=== PATIENT | female | born 1995 ===

== ENCOUNTER 2021-04-15 22:48 | Inpatient (IN) | payer BC ==
[2021-04-16] MEDS ORDERED: Water For Irrigation,Sterile 1,000 ML Container IRR PRN (00:20)
[2021-04-16] MEDS ORDERED: Nalbuphine 10 MG/1 ML Vial IVPUSH PRN (00:20)
[2021-04-16] MEDS ORDERED: Misoprostol 25 MCG (1/4 of 100 MCG) Tab VAG PRN ×2 (00:20)
[2021-04-16] MEDS ORDERED: Methylergonovine 0.2 MG/1 ML Amp IM PRN (00:20)
[2021-04-16] MEDS ORDERED: Tranexamic Acid 1,000 MG in Sodium Chloride 0.9% 100 ML IV PRN (00:20)
[2021-04-16] MEDS ORDERED: Terbutaline 1 MG/ML SDV SUBCUT PRN (00:20)
[2021-04-16] MEDS ORDERED: Lidocaine 1% 50 ML MDV INJECT PRN (00:20)
[2021-04-16] MEDS ORDERED: Sodium Chloride 0.9% 10 ML SDV IV PRN (00:20)
[2021-04-16] MEDS ORDERED: Sodium Chloride 0.9% 10 ML Syringe FLUSH PRN (00:20)
[2021-04-16] MEDS ORDERED: Carboprost Tromethamine 250 MCG/1 ML Amp IM PRN (00:20)
[2021-04-16] MEDS ORDERED: Sodium Chloride 0.9% 2.5 ML Syringe FLUSH PRN (00:20)
[2021-04-16] MEDS ORDERED: Misoprostol 200 MCG Tab PO PRN (00:20)
[2021-04-16] MEDS ORDERED: Butorphanol 1 MG/ML SDV IVPUSH PRN (00:20)
[2021-04-16] MEDS ORDERED: Ondansetron 4 MG/2 ML SDV IVPUSH PRN ×2 (00:29→09:51)
[2021-04-16] MEDS ORDERED: Oxytocin/0.9 % Sodium Chloride 30 UNIT/500 ML BAG IV SCH ×3 (00:30→08:30)
[2021-04-16] MEDS ORDERED: Lactated Ringers 1,000 ML IV SCH ×2 (00:30→10:00)
[2021-04-16] MEDS ORDERED: Acetaminophen 500 MG Tab PO PRN (04:51)
[2021-04-16] MEDS ORDERED: Calcium Gluconate 10% 1 GM/10 ML SDV IV PRN ×2 (04:56→09:56)
[2021-04-16] MEDS ORDERED: Magnesium Sulfate/Water 4 GM in Premix Bag 1 BAG IV ONE (04:56)
[2021-04-16] MEDS ORDERED: Magnesium Sulfate/Water 20 GM/500 ML BAG IV SCH (05:00)
[2021-04-16] MEDS: Labetalol 100 MG/20 ML MDV IVPUSH PRN ×2 (05:47→06:49)
[2021-04-16] MEDS: Sodium Chloride 0.9% 1,000 ML IV SCH (05:57)
[2021-04-16 06:14] LABS: BLOOD UREA NITROGEN,BUN 12 mg/dL (7.0-18.0); CARBON DIOXIDE,CO2 21.3 mmol/L (21.0-32.0); CHLORIDE,CL 103 mmol/L (98-107); GLUCOSE RANDOM 86 mg/dL (74-106); POTASSIUM,K 4.2 mmol/L (3.5-5.1); SODIUM,NA 134 mmol/L (136-145)
[2021-04-16] MEDS ORDERED: Ropivacaine HCl/PF 200 ML ONE (07:44)
--- NOTE | 2021-04-16 08:12 | PCM.PREANE ---
Preanesthetic Assessment - Anesthesia/Transfusion/Family Hx Anesthesia History: No Prior Anesthesia Family History of Anesthesia Reaction: No Transfusion History: No Prior Transfusion(s) - Physical Assessment Height: 5 ft 7 in Weight: 219 lb ASA Class: 2 Airway Class: Mallampati = 3 - Lab Values: Laboratory Last Values WBC 9.76 K/uL (4.0-11.0) 04/15/21 23:53 RBC 4.09 M/uL (4.30-5.90) L 04/15/21 23:53 Hgb 12.2 g/dL (12.0-16.0) 04/15/21 23:53 Hct 37.6 % (36.0-46.0) 04/15/21 23:53 MCV 91.9 fL (80.0-98.0) 04/15/21 23:53 MCH 29.8 pg (27.0-32.0) 04/15/21 23:53 MCHC 32.4 g/dL (31.0-37.0) 04/15/21 23:53 RDW Std Deviation 42.3 fl (28.0-62.0) 04/15/21 23:53 RDW Coeff of Andre 13 % (11.0-15.0) 04/15/21 23:53 Plt Count 200 K/uL (150-400) 04/15/21 23:53 MPV 12.60 fL (7.40-12.00) H 04/15/21 23:53 Sodium 134 mmol/L (136-145) L 04/16/21 05:42 Potassium 4.2 mmol/L (3.5-5.1) 04/16/21 05:42 Chloride 103 mmol/L (98-107) 04/16/21 05:42 Carbon Dioxide 21.3 mmol/L (21.0-32.0) 04/16/21 05:42 BUN 12 mg/dL (7.0-18.0) 04/16/21 05:42 Creatinine 1.0 mg/dL (0.6-1.0) 04/16/21 05:42 Est Cr Clr Drug Dosing 84.36 mL/min 04/16/21 05:42 Estimated GFR (MDRD) > 60.0 ml/min 04/16/21 05:42 Glucose 86 mg/dL (74-106) 04/16/21 05:42 Uric Acid 6.7 mg/dL (2.6-7.2) 04/16/21 05:42 Calcium 8.8 mg/dL (8.5-10.1) 04/16/21 05:42 Total Bilirubin 0.6 mg/dL (0.2-1.0) 04/16/21 05:42 AST 16 IU/L (15-37) 04/16/21 05:42 ALT 12 IU/L (14-63) L 04/16/21 05:42 Alkaline Phosphatase 126 U/L (46-116) H 04/16/21 05:42 Lactate Dehydrogenase 173 U/L (81-234) 04/16/21 05:42 Total Protein 6.5 g/dL (6.4-8.2) 04/16/21 05:42 Albumin 2.5 g/dL (3.4-5.0) L 04/16/21 05:42 Globulin 4.0 g/dL (2.6-4.0) 04/16/21 05:42 Albumin/Globulin Ratio 0.6 (0.9-1.6) L 04/16/21 05:42 Urine Color YELLOW 04/16/21 06:20 Urine Appearance CLEAR 04/16/21 06:20 Urine pH 6.0 (5.0-8.0) 04/16/21 06:20 Ur Specific [place] 1.025 (1.001-1.035) 04/16/21 06:20 Urine Protein 30 mg/dL (NEGATIVE) H 04/16/21 06:20 Urine Glucose (UA) NEGATIVE mg/dL (NEGATIVE) 04/16/21 06:20 Urine Ketones NEGATIVE mg/dL (NEGATIVE) 04/16/21 06:20 Urine Occult Blood NEGATIVE (NEGATIVE) 04/16/21 06:20 Urine Nitrite NEGATIVE (NEGATIVE) 04/16/21 06:20 Urine Bilirubin NEGATIVE (NEGATIVE) 04/16/21 06:20 Urine Urobilinogen 0.2 EU/dL (<2.0) 04/16/21 06:20 Ur Leukocyte Esterase NEGATIVE (NEGATIVE) 04/16/21 06:20 Urine RBC 0-2 (0-2/HPF) 04/16/21 06:20 Urine WBC 0-1 (0-5/HPF) 04/16/21 06:20 Ur Epithelial Cells FEW (NONE-FEW) 04/16/21 06:20 Urine Bacteria NOT SEEN (NEGATIVE) 04/16/21 06:20 Blood Type A POSITIVE 04/15/21 23:53 Antibody Screen NEGATIVE 04/15/21 23:53 - Allergies Allergies/Adverse Reactions: Allergies Allergy/AdvReac Type Severity Reaction Status Date / Time Penicillins Allergy Hives Verified 04/03/21 11:38 - Blood Blood Available: Yes Product(s) Available: PRBC, FFP, Platelets - Anesthesia Plan Pre-Op Medication Ordered: None - Acknowledgements Anesthesia Type Planned: Epidural Pt an Appropriate Candidate for the Planned Anesthesia: Yes Alternatives and Risks of Anesthesia Discussed w Pt/Guardian: Yes Pt/Guardian Understands and Agrees with Anesthesia Plan: Yes PreAnesthesia Questionnaire - CURRENT (IN HOUSE) MEDS Current Meds: Current Medications Acetaminophen (Acetaminophen 500 Mg Tab) 1,000 mg PO Q4H PRN PRN Reason: Pain Last Admin: 04/16/21 05:30 Dose: 1,000 mg Documented by: Butorphanol Tartrate (Butorphanol 1 Mg/Ml Sdv) 1 mg IVPUSH Q1H PRN PRN Reason: Pain (severe 7-10) Calcium Gluconate (Calcium Gluconate 10% 1 Gm/10 Ml Sdv) 1 gm IV ASDIRECTED PRN PRN Reason: respiratory distress Carboprost Tromethamine (Carboprost Tromethamine 250 Mcg/1 Ml Amp) 250 mcg IM ASDIRECTED PRN PRN Reason: Post Hemorrhage Oxytocin/Sodium Chloride (Oxytocin 30 Unit/500 Ml-Ns) 30 unit in 500 mls @ 999 mls/hr IV TITRATE NIRAV Tranexamic Acid 1,000 mg/ (Sodium Chloride) 110 mls @ 660 mls/hr IV ONETIME PRN PRN Reason: Bleeding Oxytocin/Sodium Chloride (Oxytocin 30 Unit/500 Ml-Ns) 30 unit in 500 mls @ 2 mls/hr IV TITRATE NIRAV; Protocol Lactated Ringer's (Ringers, Lactated) 1,000 mls @ 150 mls/hr IV ASDIRECTED NIRAV Last Admin: 04/16/21 00:53 Dose: 150 mls/hr Documented by: Magnesium Sulfate (Magnesium Sulfate In Water 20 Gm/500 Ml) 20 gm in 500 mls @ 50 mls/hr IV ASDIRECTED NIRAV Last Admin: 04/16/21 06:00 Dose: 2 gm/hr, 50 mls/hr Documented by: Sodium Chloride (Normal Saline) 1,000 mls @ 25 mls/hr IV ASDIRECTED [facility] Last Admin: 04/16/21 05:57 Dose: 25 mls/hr Documented by: Labetalol HCl (Labetalol 100 Mg/20 Ml Mdv) 20 mg IVPUSH Q10M PRN; Protocol PRN Reason: Hypertension Last Admin: 04/16/21 06:49 Dose: 40 mg Documented by: Lidocaine HCl (Lidocaine 1% 50 Ml Mdv) 50 ml INJECT ONETIME PRN PRN Reason: Laceration repair Methylergonovine Maleate (Methylergonovine 0.2 Mg/1 Ml Amp) 0.2 mg IM ASDIRECTED PRN PRN Reason: Post Hemorrhage Misoprostol (Misoprostol 200 Mcg Tab) 200 mcg PO ONETIME PRN PRN Reason: Post Hemorrhage Misoprostol (Misoprostol 25 Mcg (1/4 Of 100 Mcg) Tab) 25 mcg VAG ONETIME PRN PRN Reason: Cervical Ripening Misoprostol (Misoprostol 25 Mcg (1/4 Of 100 Mcg) Tab) 25 mcg VAG Q4H PRN PRN Reason: Cervical Ripening Last Admin: 04/16/21 01:01 Dose: 25 mcg Documented by: Nalbuphine HCl (Nalbuphine 10 Mg/1 Ml Vial) 10 mg IVPUSH Q1H PRN PRN Reason: Pain (severe 7-10) Ondansetron HCl (Ondansetron 4 Mg/2 Ml Sdv) 4 mg IVPUSH Q4H PRN PRN Reason: Nausea Sodium Chloride (Sodium Chloride 0.9% 10 Ml Syringe) 10 ml FLUSH ASDIRECTED PRN PRN Reason: Keep Vein Open Sodium Chloride (Sodium Chloride 0.9% 2.5 Ml Syringe) 2.5 ml FLUSH ASDIRECTED PRN PRN Reason: Keep Vein Open Sodium Chloride (Sodium Chloride 0.9% 10 Ml Sdv) 10 ml IV ASDIRECTED PRN PRN Reason: IV Use Sterile Water (Water For Irrigation,Sterile 1,000 Ml Container) 1,000 ml IRR ASDIRECTED PRN PRN Reason: delivery Terbutaline Sulfate (Terbutaline 1 Mg/Ml Sdv) 0.25 mg SUBCUT ASDIRECTED PRN PRN Reason: Tacysystole Discontinued Medications Magnesium Sulfate 4 gm/ Premix 100 mls @ 300 mls/hr IV BOLUS ONE Stop: 04/16/21 05:15 Last Admin: 04/16/21 05:44 Dose: 300 mls/hr Documented by: Ropivacaine (Naropin 0.2%) Confirm Administered Dose 200 mls @ as directed .ROUTE .STK-MED ONE Stop: 04/16/21 07:45 - Pre-Procedure Checklist Attending Provider Aware: Yes Chart Reviewed: Yes Consent Signed: Yes Labs Reviewed: Yes VS/FHR Reviewed: Yes Patient Identification Confirmation Method: Reports: Verbal Patient Pt an Appropriate Candidate for the Planned Anesthesia: Yes Alternatives and Risks of Anesthesia Discussed w Pt/Guardian: Yes - Procedure Procedure Start Date: 04/16/21 Procedure Start Time: 07:[address]: Reports: Blood Pressure, Heart Rate, SPO2 Functional IV: Yes Safety Measures: Reports: Patient Identified, Procedure Verified, Site Verified, Procedure Time Out Patient Position: Reports: Sitting Prep: Reports: Betadine x3, Sterile Drape Local Anesthetic: Reports: Intradermal Wheal w Lidocaine 1% Needle: Reports: 17 g Touhy Approach: Reports: Midline Technique: Reports: FANNY Plastic Syringe Parasthesia: Reports: None Fluid Obtained: Reports: None Test Dose Time: 07:57 Test Dose Medication: Reports: Lidocaine 1.5% w Epinephrine 1:200,000 Test Dose Response: Reports: Negative Loading Dose Time: 07:55 Loading Dose Medication: bupivicaine 0.25% 10 cc Loading Dose Patient Position: sitting Continuous Infusion Start Time: 08:00 Continuous Infusion Medication: ropivicaine 0.2% Continuous Infusion Rate: 16 Continuous Infusion PCS Bolus Option: 4 Continuous Infusion Lockout Dose (cc/hr): 32 Patient Position Post Placement: Reports: Supline/CARLINE VS and FHR Monitored in Unit Post Placement: Yes Procedure End Date: 04/16/21 Procedure End Time: 08:51
--- NOTE | 2021-04-16 08:13 | PCM.POSTAN ---
POST ANESTHESIA ASSESSMENT - MENTAL STATUS Mental Status: Alert, Oriented - RESPIRATORY Respiratory Status: Respiratory Rate WNL, Airway Patent, O2 Saturation Stable - CARDIOVASCULAR CV Status: Pulse Rate WNL, Blood Pressure Stable - GASTROINTESTINAL GI Status: No Symptoms - POST OP HYDRATION Hydration Status: Adequate & Stable
[2021-04-16] MEDS ORDERED: Oxytocin 10 Units/1 ML SDV ONE (08:27)
[2021-04-16] MEDS ORDERED: ceFAZolin 2 GM in Premix Bag 1 BAG IV ONE (08:27)
[2021-04-16] MEDS ORDERED: Ketorolac 30 MG/ML SDV ONE (08:27)
[2021-04-16] MEDS ORDERED: Ondansetron 4 MG/2 ML SDV ONE (08:27)
[2021-04-16] MEDS ORDERED: fentaNYL 100 MCG/2 ML SDV ONE (08:27)
[2021-04-16] MEDS ORDERED: Citric Acid/Sodium Citrate Solution 30 ML Cup PO ONE (08:27)
[2021-04-16] MEDS ORDERED: Bupivacaine 0.5% 10 ML SDV ONE (08:28)
[2021-04-16] MEDS ORDERED: Lidocaine 2% 5 ML SDV ONE ×2 (08:28→09:37)
[2021-04-16] MEDS ORDERED: ceFAZolin 1 GM Vial ONE (09:00)
[2021-04-16] MEDS ORDERED: Morphine PF 10 MG/10 ML SDV ONE (09:33)
[2021-04-16] MEDS ORDERED: Measles, Mumps & Rubella Vaccine 0.5 ML SDV SUBCUT ONE (09:51)
[2021-04-16] MEDS ORDERED: Acetaminophen/oxyCODONE 325-5 MG Tab PO PRN (09:51)
[2021-04-16] MEDS ORDERED: Bisacodyl 10 MG Supp RECTAL PRN (09:51)
[2021-04-16] MEDS ORDERED: diphenhydrAMINE 50 MG/ML SDV IVPUSH PRN (09:51)
[2021-04-16] MEDS ORDERED: Lanolin 100% Cream 7 GM Tube TOP PRN (09:51)
--- NOTE | 2021-04-16 09:56 | PCM.OPNOTE ---
<Sanjuanita Marino - Last Filed: 04/16/21 09:50> - General Post-Op/Procedure Note Date of Surgery/Procedure: 04/16/21 Operative Procedure(s): section Findings: Viable boy. Apgars 5 and 7. Weight 2110 grams. Pre Op Diagnosis: Pre eclampsia with severe features. Category 2 heart tones Post-Op Diagnosis: Same Anesthesia Technique: Epidural Primary Surgeon: Kaitlynn Dempsey Infantry Unit Leader: Sanjuanita Marino Pathology: Intact placenta and three vessel cord Fluid Replacement, Intraop: 1,000 Output, Urine Amount: 250 EBL in mLs: 400 Drain/Tube Comments:: Karimi catheter Complications: None known Condition: Good Free Text/Narrative:: 25-year-old (37w3d dated by LMP on 07/28/20) with pre eclampsia with severe features s/p section due to persistent category 2 heart tones. Blood type A+, Rubella non immune, GBS negative. Viable boy. Apgars 5 and 7. Weight 2110 grams. <Kaitlynn Dempsey - Last Filed: 04/16/21 09:59> - General Post-Op/Procedure Note Operative Procedure(s): Primary low-transverse section Anesthesia Provider: Hector Alberto Free Text/Narrative:: Intake & Output 04/15/21 04/16/21 04/16/21 22:59 06:59 14:59 Intake Total 1000 Output Total 250 Balance 750 I have reviewed and agree with the above. Will continue magnesium for 24 hours for seizure prophylaxis. Please see dictation #[id number] for additional details.
[2021-04-16] MEDS ORDERED: Oxytocin/Lactated Ringers 30 UNIT/500 ML BAG IV SCH (10:00)
[2021-04-16] MEDS: Ketorolac 30 MG/ML SDV IVPUSH SCH ×2 (15:30→20:51)
[2021-04-16] MEDS: Magnesium Sulfate/Water 20 GM/500 ML BAG IV SCH (16:09)
--- NOTE | 2021-04-16 17:02 | OR ---
SURGEON: Kaitlynn Dempsey MD DATE OF PROCEDURE: 04/16/2021 PREOPERATIVE DIAGNOSES: 1. A 25-year-old, G1, P0 at 37 weeks and 3 days gestation. 2. Induction of labor for preeclampsia with severe features. 3. Persistent category 2 heart tones. POSTOPERATIVE DIAGNOSES: 1. A 25-year-old, G1, P0 at 37 weeks and 3 days gestation. 2. Induction of labor for preeclampsia with severe features. 3. Persistent category 2 heart tones. PROCEDURE: Primary low transverse section. PRIMARY SURGEON: Kaitlynn Dempsey MD ANESTHESIA: Epidural. TECHNICAL ADMINISTRATOR: Sanjuanita Marino, medical student. INTRAVENOUS FLUIDS: 1000 mL LR. ESTIMATED BLOOD LOSS: 400 mL. URINE OUTPUT: 200 mL of clear yellow urine. ANTIBIOTIC PROPHYLAXIS: 2 g of Ancef IV. PATHOLOGY: Placenta, cord blood, and cord gases. FINDINGS: Live male infant in cephalic presentation. scores were 5 and 7 at one and five minutes respectively. Weight 2110 g. Placenta intact with 3-vessel cord. Normal-appearing uterus, ovaries, and fallopian tubes. INDICATIONS: This is a 25-year-old G1, P0 who presented at 37 weeks and 3 days gestation for scheduled induction of labor for preeclampsia. On presentation, her cervix was found to be closed, and she received 1 dose of Cytotec for cervical ripening. Blood pressures were monitored and were noted to be in the severe range. She received 60 mg of labetalol IV for management of severe range blood pressures. Magnesium was started for seizure prophylaxis. The patient began theresa and recurrent late and variable decelerations were noted. A Karimi bulb was placed for induction of labor as it was felt that Pitocin or additional Cytotec would not be tolerated by the fetus. With recurrent late and variable decelerations, discussion was held with the patient regarding continued induction of labor versus delivery for persistent category 2 heart tones. The patient agreed to delivery for benefit. The alternatives, risks, and benefits of the procedure were reviewed with this patient. DESCRIPTION OF PROCEDURE: The patient was taken to the operating room where epidural anesthesia was noted to be adequate. She was placed in dorsal supine position with leftward tilt. She was prepared and draped in normal sterile fashion. A Pfannenstiel skin incision was made with a scalpel and carried through the underlying layer of fascia with the Bovie. Fascia was incised in midline, and the incision was then extended laterally with curved Saldivar scissors. The superior aspect of the fascial incision was grasped with Ana clamps, elevated, and the underlying rectus muscles dissected off bluntly. In a similar fashion, the inferior aspect of the fascial incision was grasped with Ana clamps, elevated, and underlying rectus muscles dissected off bluntly and with curved Saldivar scissors. The peritoneum was then identified in the midline, and the incision extended using manual traction. A large Germán retractor was placed. A low uterine hysterotomy was created with scalpel. The hysterotomy was extended using manual traction. Artificial rupture of membranes occurred with meconium fluid noted. 's head was delivered atraumatically followed by the shoulders and remainder of the body. Cord was clamped and cut, and the was handed off to the awaiting suction worker, respiratory therapist, and nurse. Cord blood and cord gases were obtained. Placenta was then delivered intact with three-vessel cord via with uterine massage and gentle traction on the cord. The uterus was cleared of all clots and debris. The hysterotomy was repaired with a running lock stitch of 0 Vicryl suture. A second stitch of the same suture was used to obtain hemostasis. The uterus was returned to the abdomen, and the gutters were cleared of clot. The hysterotomy was inspected, and Bovie was used to obtain hemostasis. The Germán retractor was removed. The rectus muscles were inspected and noted to be hemostatic. The fascia was closed with a running stitch of 0 Vicryl suture. Subcutaneous tissue was closed with a running stitch of 3-0 Vicryl suture. The skin was closed with 4-0 Monocryl in subcuticular fashion. All sponge, lap, needle counts were correct x2. [id number] / MODL /[id number]
[2021-04-16] MEDS: Docusate Sodium 100 MG Cap PO SCH (20:54)
[2021-04-17] MEDS: Sodium Chloride 0.9% 1,000 ML IV SCH (01:00)
[2021-04-17] MEDS: Magnesium Sulfate/Water 20 GM/500 ML BAG IV SCH (02:12)
[2021-04-17] MEDS: Ketorolac 30 MG/ML SDV IVPUSH SCH ×2 (02:14→08:28)
[2021-04-17 04:21] LABS: BLOOD UREA NITROGEN,BUN 10 mg/dL (7.0-18.0); CARBON DIOXIDE,CO2 25.3 mmol/L (21.0-32.0); CHLORIDE,CL 105 mmol/L (98-107); GLUCOSE RANDOM 100 mg/dL (74-106); POTASSIUM,K 4.7 mmol/L (3.5-5.1); SODIUM,NA 136 mmol/L (136-145)
--- NOTE | 2021-04-17 07:55 | PCM.PNPP ---
<Sanjuanita Marino - Last Filed: 04/17/21 07:57> - General Info Date of Service: 04/17/21 Admission Dx/Problem (Free Text): Labor Subjective Update: Patient appears to be doing well. No pain. Rome catheter in place. Walked yesterday to a wheel chair so she could see baby. Tolerating food. Denies headaches, dizziness, palpitations, or vision changes. Light vaginal discharge. - Review of Systems General: Reports: No Symptoms HEENT: Reports: No Symptoms Pulmonary: Reports: No Symptoms Cardiovascular: Reports: No Symptoms Gastrointestinal: Reports: No Symptoms Genitourinary: Reports: No Symptoms Musculoskeletal: Reports: No Symptoms Skin: Reports: No Symptoms Neurological: Reports: No Symptoms Psychiatric: Reports: No Symptoms - General Info Date of Service: 04/17/21 - Patient Data Vital Signs - Most Recent: Last Vital Signs Temp 36.4 C 04/17/21 04:00 Pulse 90 04/17/21 04:00 Resp 15 04/17/21 04:00 BP 157/81 H 04/17/21 04:00 Pulse Ox 97 04/17/21 04:00 Weight - Most Recent: 99.337 kg I&O - Last 24 Hours: Intake & Output 04/16/21 04/17/21 04/17/21 22:59 06:59 14:59 Intake Total 500 150 Output Total 1210 1425 Balance -710 -1275 Lab Results - Last 24 Hours: Laboratory Results - last 24 hr 04/16/21 04/16/21 04/16/21 Range/Units 09:09 10:24 15:38 WBC (4.0-11.0) K/uL RBC (4.30-5.90) M/uL Hgb (12.0-16.0) g/dL Hct (36.0-46.0) % MCV (80.0-98.0) fL MCH (27.0-32.0) pg MCHC (31.0-37.0) g/dL RDW Std Deviation (28.0-62.0) fl RDW Coeff of Andre (11.0-15.0) % Plt Count (150-400) K/uL MPV (7.40-12.00) fL Nucleated RBC % /100WBC Nucleated RBCs # K/uL Cord ABG pH 7.134 L (7.18-7.38) Cord ABG Base Excess -10.1 L (-10--2) Cord VBG pH 7.197 L (7.25-7.45) Cord VBG Base Excess -10.9 L (-10--2) Sodium (136-145) mmol/L Potassium (3.5-5.1) mmol/L Chloride (98-107) mmol/L Carbon Dioxide (21.0-32.0) mmol/L BUN (7.0-18.0) mg/dL Creatinine (0.6-1.0) mg/dL Est Cr Clr Drug Dosing mL/min Estimated GFR (MDRD) ml/min Glucose (74-106) mg/dL Calcium (8.5-10.1) mg/dL Magnesium 4.6 H 5.8 H (1.8-2.4) mg/dL Total Bilirubin (0.2-1.0) mg/dL AST (15-37) IU/L ALT (14-63) IU/L Alkaline Phosphatase (46-116) U/L Total Protein (6.4-8.2) g/dL Albumin (3.4-5.0) g/dL Globulin (2.6-4.0) g/dL Albumin/Globulin Ratio (0.9-1.6) 04/16/21 04/17/21 04/17/21 Range/Units 21:47 03:55 03:55 WBC 9.90 (4.0-11.0) K/uL RBC 3.47 L (4.30-5.90) M/uL Hgb 10.3 L (12.0-16.0) g/dL Hct 31.5 L (36.0-46.0) % MCV 90.8 (80.0-98.0) fL MCH 29.7 (27.0-32.0) pg MCHC 32.7 (31.0-37.0) g/dL RDW Std Deviation 45.6 (28.0-62.0) fl RDW Coeff of Andre 14 (11.0-15.0) % Plt Count 168 (150-400) K/uL MPV 11.40 (7.40-12.00) fL Nucleated RBC % 0.0 /100WBC Nucleated RBCs # 0 K/uL Cord ABG pH (7.18-7.38) Cord ABG Base Excess (-10--2) Cord VBG pH (7.25-7.45) Cord VBG Base Excess (-10--2) Sodium 136 (136-145) mmol/L Potassium 4.7 (3.5-5.1) mmol/L Chloride 105 (98-107) mmol/L Carbon Dioxide 25.3 (21.0-32.0) mmol/L BUN 10 (7.0-18.0) mg/dL Creatinine 1.0 (0.6-1.0) mg/dL Est Cr Clr Drug Dosing 84.36 mL/min Estimated GFR (MDRD) > 60.0 ml/min Glucose 100 (74-106) mg/dL Calcium 7.0 L (8.5-10.1) mg/dL Magnesium 6.3 H (1.8-2.4) mg/dL Total Bilirubin 0.5 (0.2-1.0) mg/dL AST 19 (15-37) IU/L ALT 11 L (14-63) IU/L Alkaline Phosphatase 99 (46-116) U/L Total Protein 5.4 L (6.4-8.2) g/dL Albumin 1.9 L (3.4-5.0) g/dL Globulin 3.5 (2.6-4.0) g/dL Albumin/Globulin Ratio 0.5 L (0.9-1.6) 04/17/21 Range/Units 03:55 WBC (4.0-11.0) K/uL RBC (4.30-5.90) M/uL Hgb (12.0-16.0) g/dL Hct (36.0-46.0) % MCV (80.0-98.0) fL MCH (27.0-32.0) pg MCHC (31.0-37.0) g/dL RDW Std Deviation (28.0-62.0) fl RDW Coeff of Andre (11.0-15.0) % Plt Count (150-400) K/uL MPV (7.40-12.00) fL Nucleated RBC % /100WBC Nucleated RBCs # K/uL Cord ABG pH (7.18-7.38) Cord ABG Base Excess (-10--2) Cord VBG pH (7.25-7.45) Cord VBG Base Excess (-10--2) Sodium (136-145) mmol/L Potassium (3.5-5.1) mmol/L Chloride (98-107) mmol/L Carbon Dioxide (21.0-32.0) mmol/L BUN (7.0-18.0) mg/dL Creatinine (0.6-1.0) mg/dL Est Cr Clr Drug Dosing mL/min Estimated GFR (MDRD) ml/min Glucose (74-106) mg/dL Calcium (8.5-10.1) mg/dL Magnesium 6.5 H (1.8-2.4) mg/dL Total Bilirubin (0.2-1.0) mg/dL AST (15-37) IU/L ALT (14-63) IU/L Alkaline Phosphatase (46-116) U/L Total Protein (6.4-8.2) g/dL Albumin (3.4-5.0) g/dL Globulin (2.6-4.0) g/dL Albumin/Globulin Ratio (0.9-1.6) Med Orders - Current: Current Medications Acetaminophen (Acetaminophen 500 Mg Tab) 1,000 mg PO Q4H PRN PRN Reason: Pain Last Admin: 04/16/21 05:30 Dose: 1,000 mg Documented by: Bisacodyl (Bisacodyl 10 Mg Supp) 10 mg RECTAL ONETIME PRN PRN Reason: Constipation Butorphanol Tartrate (Butorphanol 1 Mg/Ml Sdv) 1 mg IVPUSH Q1H PRN PRN Reason: Pain (severe 7-10) Calcium Gluconate (Calcium Gluconate 10% 1 Gm/10 Ml Sdv) 1 gm IV ASDIRECTED PRN PRN Reason: respiratory distress Calcium Gluconate (Calcium Gluconate 10% 1 Gm/10 Ml Sdv) 1 gm IV ASDIRECTED PRN PRN Reason: respiratory distress Carboprost Tromethamine (Carboprost Tromethamine 250 Mcg/1 Ml Amp) 250 mcg IM ASDIRECTED PRN PRN Reason: Post Hemorrhage Diphenhydramine HCl (Diphenhydramine 50 Mg/Ml Sdv) 25 mg IVPUSH Q6H PRN PRN Reason: Itching or Nausea Docusate Sodium (Docusate Sodium 100 Mg Cap) 100 mg PO BID [facility] Last Admin: 04/16/21 20:54 Dose: 100 mg Documented by: Emollient Ointment (Lanolin 100% Cream 7 Gm Tube) 0 gm TOP ASDIRECTED PRN PRN Reason: Sore Nipples Last Admin: 04/16/21 21:34 Dose: 1 tube Documented by: Oxytocin/Sodium Chloride (Oxytocin 30 Unit/500 Ml-Ns) 30 unit in 500 mls @ 999 mls/hr IV TITRATE NIRAV Tranexamic Acid 1,000 mg/ (Sodium Chloride) 110 mls @ 660 mls/hr IV ONETIME PRN PRN Reason: Bleeding Oxytocin/Sodium Chloride (Oxytocin 30 Unit/500 Ml-Ns) 30 unit in 500 mls @ 2 m ls/hr IV TITRATE [facility]; Protocol Lactated Ringer's (Ringers, Lactated) 1,000 mls @ 150 mls/hr IV ASDIRECTED [facility] Last Admin: 04/16/21 00:53 Dose: 150 mls/hr Documented by: Magnesium Sulfate (Magnesium Sulfate In Water 20 Gm/500 Ml) 20 gm in 500 mls @ 50 mls/hr IV ASDIRECTED [facility] Last Admin: 04/16/21 06:00 Dose: 2 gm/hr, 50 mls/hr Documented by: Sodium Chloride (Normal Saline) 1,000 mls @ 25 mls/hr IV ASDIRECTED [facility] Last Admin: 04/17/21 01:00 Dose: 25 mls/hr Documented by: Oxytocin/Sodium Chloride (Oxytocin 30 Unit/500 Ml-Ns) 30 unit in 500 mls @ 250 mls/hr IV TITRATE [facility] Lactated Ringer's (Ringers, Lactated) 1,000 mls @ 125 mls/hr IV ASDIRECTED [facility] Oxytocin/Lactated Ringer's (Pitocin In Lr 30 Units/500 Ml) 30 unit in 500 mls @ 999 mls/hr IV TITRATE [facility]; Protocol Magnesium Sulfate (Magnesium Sulfate In Water 20 Gm/500 Ml) 20 gm in 500 mls @ 50 mls/hr IV ASDIRECTED [facility] Stop: 04/17/21 10:01 Last Admin: 04/17/21 02:12 Dose: 2 gm/hr, 50 mls/hr Documented by: Ibuprofen (Ibuprofen 800 Mg Tab) 800 mg PO Q8H PRN PRN Reason: Cramping Ketorolac Tromethamine (Ketorolac 30 Mg/Ml Sdv) 30 mg IVPUSH Q6H NIRAV Stop: 04/17/21 08:31 Last Admin: 04/17/21 02:14 Dose: 30 mg Documented by: Labetalol HCl (Labetalol 100 Mg/20 Ml Mdv) 20 mg IVPUSH Q10M PRN; Protocol PRN Reason: Hypertension Last Admin: 04/16/21 06:49 Dose: 40 mg Documented by: Lidocaine HCl (Lidocaine 1% 50 Ml Mdv) 50 ml INJECT ONETIME PRN PRN Reason: Laceration repair Methylergonovine Maleate (Methylergonovine 0.2 Mg/1 Ml Amp) 0.2 mg IM ASDIRECTED PRN PRN Reason: Post Hemorrhage Misoprostol (Misoprostol 200 Mcg Tab) 200 mcg PO ONETIME PRN PRN Reason: Post Hemorrhage Misoprostol (Misoprostol 25 Mcg (1/4 Of 100 Mcg) Tab) 25 mcg VAG ONETIME PRN PRN Reason: Cervical Ripening Misoprostol (Misoprostol 25 Mcg (1/4 Of 100 Mcg) Tab) 25 mcg VAG Q4H PRN PRN Reason: Cervical Ripening Last Admin: 04/16/21 01:01 Dose: 25 mcg Documented by: Nalbuphine HCl (Nalbuphine 10 Mg/1 Ml Vial) 10 mg IVPUSH Q1H PRN PRN Reason: Pain (severe 7-10) Ondansetron HCl (Ondansetron 4 Mg/2 Ml Sdv) 4 mg IVPUSH Q4H PRN PRN Reason: Nausea Ondansetron HCl (Ondansetron 4 Mg/2 Ml Sdv) 4 mg IVPUSH Q4H PRN PRN Reason: Nausea/Vomiting Oxycodone/Acetaminophen (Acetaminophen/Oxycodone 325-5 Mg Tab) 1 tab PO Q4H PRN PRN Reason: Pain (severe 7-10) Oxycodone/Acetaminophen (Acetaminophen/Oxycodone 325-5 Mg Tab) 2 tab PO Q4H PRN PRN Reason: Pain (severe 7-10) Sodium Chloride (Sodium Chloride 0.9% 10 Ml Syringe) 10 ml FLUSH ASDIRECTED PRN PRN Reason: Keep Vein Open Sodium Chloride (Sodium Chloride 0.9% 2.5 Ml Syringe) 2.5 ml FLUSH ASDIRECTED PRN PRN Reason: Keep Vein Open Sodium Chloride (Sodium Chloride 0.9% 10 Ml Sdv) 10 ml IV ASDIRECTED PRN PRN Reason: IV Use Sterile Water (Water For Irrigation,Sterile 1,000 Ml Container) 1,000 ml IRR ASDIRECTED PRN PRN Reason: delivery Terbutaline Sulfate (Terbutaline 1 Mg/Ml Sdv) 0.25 mg SUBCUT ASDIRECTED PRN PRN Reason: Tacysystole Discontinued Medications Bupivacaine HCl (Bupivacaine 0.5% 10 Ml Sdv) Confirm Administered Dose 20 ml .ROUTE .STK-MED ONE Stop: 04/16/21 08:29 Cefazolin Sodium (Cefazolin 1 Gm Vial) Confirm Administered Dose 2 gm .ROUTE .STK-MED ONE Stop: 04/16/21 09:01 Citric Acid/Sodium Citrate (Citric Acid/Sodium Citrate Solution 30 Ml Cup) 30 ml PO ONETIME ONE Stop: 04/16/21 08:28 Fentanyl (Fentanyl 100 Mcg/2 Ml Sdv) Confirm Administered Dose 100 mcg .ROUTE .STK-MED ONE Stop: 04/16/21 08:28 Magnesium Sulfate 4 gm/ Premix 100 mls @ 300 mls/hr IV BOLUS ONE Stop: 04/16/21 05:15 Last Admin: 04/16/21 05:44 Dose: 300 mls/hr Documented by: Ropivacaine (Naropin 0.2%) Confirm Administered Dose 200 mls @ as directed .ROUTE .STK-MED ONE Stop: 04/16/21 07:45 Cefazolin Sodium/Dextrose 2 gm (/ Premix) 50 mls @ 100 mls/hr IV ONETIME ONE Stop: 04/16/21 08:56 Ketorolac Tromethamine (Ketorolac 30 Mg/Ml Sdv) Confirm Administered Dose 30 mg .ROUTE .STK-MED ONE Stop: 04/16/21 08:28 Lidocaine (Lidocaine 2% 5 Ml Sdv) Confirm Administered Dose 5 ml .ROUTE .STK-MED ONE Stop: 04/16/21 08:29 Lidocaine (Lidocaine 2% 5 Ml Sdv) Confirm Administered Dose 5 ml .ROUTE .STK-MED ONE Stop: 04/16/21 09:38 Measles/Mumps/Rubella Vaccine Live (Measles, Mumps & Rubella Vaccine 0.5 Ml Sdv) 0.5 ml SUBCUT .ONCE ONE Stop: 04/16/21 09:52 Miscellaneous Medication (Phenylephrine Hcl In 0.9% Nacl 1 Mg/10 Ml Syringe) Confirm Administered Dose 1 mg .ROUTE .STK-MED ONE Stop: 04/16/21 08:28 Morphine Sulfate (Morphine Pf 10 Mg/10 Ml Sdv) Confirm Administered Dose 10 mg .ROUTE .STK-MED ONE Stop: 04/16/21 09:34 Ondansetron HCl (Ondansetron 4 Mg/2 Ml Sdv) Confirm Administered Dose 4 mg .ROUTE .STK-MED ONE Stop: 04/16/21 08:28 Oxytocin (Oxytocin 10 Units/1 Ml Sdv) Confirm Administered Dose 30 unit .ROUTE .STK-MED ONE Stop: 04/16/21 08:28 - Interaction Disposition, : [place] to Nursery Other Infant Feeding: Formula while in nursery. Attemping when able - Recovery Exam Fundal Tone: Firm Fundal Level: 2 Fingerbreadths Below Umbilicus Fundal Placement: Midline Lochia Amount: Scant Lochia Color: Rubra/Red Episiotomy/Laceration: None Bladder Status: Indwelling Catheter in Place Urinary Elimination: Indwelling Catheter - Exam General: Alert, Oriented Neck: Supple Lungs: Clear to Auscultation, Normal Respiratory Effort Cardiovascular: Regular Rate, Regular Rhythm GI/Abdominal Exam: Soft, Tender Extremities: Normal Inspection, Normal Range of Motion, Non-Tender, No Pedal Edema Skin: Warm Wound/Incisions: Healing Well, Dressing Dry and Intact Neurological: No New Focal Deficit Psy/Mental Status: Alert, Normal Affect, Normal Mood - Problem List Review Problem List Initiated/Reviewed/Updated: Yes - Assessment Assessment:: 25-year-old (37w3d dated by LMP on 07/28/20) with pre eclampsia with severe features PPD#1 s/p section due to persistent category 2 heart tones. Blood type A+, Rubella non immune, GBS negative. Viable boy. Apgars 5 and 7. Weight 2110 grams. No concerns overnight. BPs elevated and at 157/87 this morning. Denies symptoms. Hgb 10.3 - Plan Plan:: - Routine care - Mag will finish 24 hours at 0900 and rome catheter can be removed - Encourage ambulation - Tylenol/ aspirin for pain - Continue to monitor blood pressures <Kaitlynn Dempsey - Last Filed: 04/17/21 09:29> - General Info Functional Status: Reports: Pain Controlled, Tolerating Diet - Patient Data Vital Signs - Most Recent: Last Vital Signs Temp 36.4 C 04/17/21 04:00 Pulse 90 04/17/21 04:00 Resp 15 04/17/21 04:00 BP 157/81 H 04/17/21 04:00 Pulse Ox 97 04/17/21 04:00 I&O - Last 24 Hours: Intake & Output 04/16/21 04/17/21 04/17/21 22:59 06:59 14:59 Intake Total 500 150 Output Total 1210 1425 Balance -710 -1275 Lab Results - Last 24 Hours: Laboratory Results - last 24 hr 04/16/21 04/16/21 04/16/21 Range/Units 09:09 10:24 15:38 WBC (4.0-11.0) K/uL RBC (4.30-5.90) M/uL Hgb (12.0-16.0) g/dL Hct (36.0-46.0) % MCV (80.0-98.0) fL MCH (27.0-32.0) pg MCHC (31.0-37.0) g/dL RDW Std Deviation (28.0-62.0) fl RDW Coeff of Andre (11.0-15.0) % Plt Count (150-400) K/uL MPV (7.40-12.00) fL Nucleated RBC % /100WBC Nucleated RBCs # K/uL Cord ABG pH 7.134 L (7.18-7.38) Cord ABG Base Excess -10.1 L (-10--2) Cord VBG pH 7.197 L (7.25-7.45) Cord VBG Base Excess -10.9 L (-10--2) Sodium (136-145) mmol/L Potassium (3.5-5.1) mmol/L Chloride (98-107) mmol/L Carbon Dioxide (21.0-32.0) mmol/L BUN (7.0-18.0) mg/dL Creatinine (0.6-1.0) mg/dL Est Cr Clr Drug Dosing mL/min Estimated GFR (MDRD) ml/min Glucose (74-106) mg/dL Calcium (8.5-10.1) mg/dL Magnesium 4.6 H 5.8 H (1.8-2.4) mg/dL Total Bilirubin (0.2-1.0) mg/dL AST (15-37) IU/L ALT (14-63) IU/L Alkaline Phosphatase (46-116) U/L Total Protein (6.4-8.2) g/dL Albumin (3.4-5.0) g/dL Globulin (2.6-4.0) g/dL Albumin/Globulin Ratio (0.9-1.6) 04/16/21 04/17/21 04/17/21 Range/Units 21:47 03:55 03:55 WBC 9.90 (4.0-11.0) K/uL RBC 3.47 L (4.30-5.90) M/uL Hgb 10.3 L (12.0-16.0) g/dL Hct 31.5 L (36.0-46.0) % MCV 90.8 (80.0-98.0) fL MCH 29.7 (27.0-32.0) pg MCHC 32.7 (31.0-37.0) g/dL RDW Std Deviation 45.6 (28.0-62.0) fl RDW Coeff of Andre 14 (11.0-15.0) % Plt Count 168 (150-400) K/uL MPV 11.40 (7.40-12.00) fL Nucleated RBC % 0.0 /100WBC Nucleated RBCs # 0 K/uL Cord ABG pH (7.18-7.38) Cord ABG Base Excess (-10--2) Cord VBG pH (7.25-7.45) Cord VBG Base Excess (-10--2) Sodium 136 (136-145) mmol/L Potassium 4.7 (3.5-5.1) mmol/L Chloride 105 (98-107) mmol/L Carbon Dioxide 25.3 (21.0-32.0) mmol/L BUN 10 (7.0-18.0) mg/dL Creatinine 1.0 (0.6-1.0) mg/dL Est Cr Clr Drug Dosing 84.36 mL/min Estimated GFR (MDRD) > 60.0 ml/min Glucose 100 (74-106) mg/dL Calcium 7.0 L (8.5-10.1) mg/dL Magnesium 6.3 H (1.8-2.4) mg/dL Total Bilirubin 0.5 (0.2-1.0) mg/dL AST 19 (15-37) IU/L ALT 11 L (14-63) IU/L Alkaline Phosphatase 99 (46-116) U/L Total Protein 5.4 L (6.4-8.2) g/dL Albumin 1.9 L (3.4-5.0) g/dL Globulin 3.5 (2.6-4.0) g/dL Albumin/Globulin Ratio 0.5 L (0.9-1.6) 04/17/21 Range/Units 03:55 WBC (4.0-11.0) K/uL RBC (4.30-5.90) M/uL Hgb (12.0-16.0) g/dL Hct (36.0-46.0) % MCV (80.0-98.0) fL MCH (27.0-32.0) pg MCHC (31.0-37.0) g/dL RDW Std Deviation (28.0-62.0) fl RDW Coeff of Andre (11.0-15.0) % Plt Count (150-400) K/uL MPV (7.40-12.00) fL Nucleated RBC % /100WBC Nucleated RBCs # K/uL Cord ABG pH (7.18-7.38) Cord ABG Base Excess (-10--2) Cord VBG pH (7.25-7.45) Cord VBG Base Excess (-10--2) Sodium (136-145) mmol/L Potassium (3.5-5.1) mmol/L Chloride (98-107) mmol/L Carbon Dioxide (21.0-32.0) mmol/L BUN (7.0-18.0) mg/dL Creatinine (0.6-1.0) mg/dL Est Cr Clr Drug Dosing mL/min Estimated GFR (MDRD) ml/min Glucose (74-106) mg/dL Calcium (8.5-10.1) mg/dL Magnesium 6.5 H (1.8-2.4) mg/dL Total Bilirubin (0.2-1.0) mg/dL AST (15-37) IU/L ALT (14-63) IU/L Alkaline Phosphatase (46-116) U/L Total Protein (6.4-8.2) g/dL Albumin (3.4-5.0) g/dL Globulin (2.6-4.0) g/dL Albumin/Globulin Ratio (0.9-1.6) Med Orders - Current: Current Medications Acetaminophen (Acetaminophen 500 Mg Tab) 1,000 mg PO Q4H PRN PRN Reason: Pain Last Admin: 04/16/21 05:30 Dose: 1,000 mg Documented by: Bisacodyl (Bisacodyl 10 Mg Supp) 10 mg RECTAL ONETIME PRN PRN Reason: Constipation Butorphanol Tartrate (Butorphanol 1 Mg/Ml Sdv) 1 mg IVPUSH Q1H PRN PRN Reason: Pain (severe 7-10) Calcium Gluconate (Calcium Gluconate 10% 1 Gm/10 Ml Sdv) 1 gm IV ASDIRECTED PRN PRN Reason: respiratory distress Calcium Gluconate (Calcium Gluconate 10% 1 Gm/10 Ml Sdv) 1 gm IV ASDIRECTED PRN PRN Reason: respiratory distress Carboprost Tromethamine (Carboprost Tromethamine 250 Mcg/1 Ml Amp) 250 mcg IM ASDIRECTED PRN PRN Reason: Post Hemorrhage Diphenhydramine HCl (Diphenhydramine 50 Mg/Ml Sdv) 25 mg IVPUSH Q6H PRN PRN Reason: Itching or Nausea Docusate Sodium (Docusate Sodium 100 Mg Cap) 100 mg PO BID NIRAV Last Admin: 04/17/21 08:28 Dose: 100 mg Documented by: Emollient Ointment (Lanolin 100% Cream 7 Gm Tube) 0 gm TOP ASDIRECTED PRN PRN Reason: Sore Nipples Last Admin: 04/16/21 21:34 Dose: 1 tube Documented by: Oxytocin/Sodium Chloride (Oxytocin 30 Unit/500 Ml-Ns) 30 unit in 500 mls @ 999 mls/hr IV TITRATE [facility] Tranexamic Acid 1,000 mg/ (Sodium Chloride) 110 mls @ 660 mls/hr IV ONETIME PRN PRN Reason: Bleeding Oxytocin/Sodium Chloride (Oxytocin 30 Unit/500 Ml-Ns) 30 unit in 500 mls @ 2 mls/hr IV TITRATE [facility]; Protocol Lactated Ringer's (Ringers, Lactated) 1,000 mls @ 150 mls/hr IV ASDIRECTED NIRAV Last Admin: 04/16/21 00:53 Dose: 150 mls/hr Documented by: Magnesium Sulfate (Magnesium Sulfate In Water 20 Gm/500 Ml) 20 gm in 500 mls @ 50 mls/hr IV ASDIRECTED NIRAV Last Admin: 04/16/21 06:00 Dose: 2 gm/hr, 50 mls/hr Documented by: Sodium Chloride (Normal Saline) 1,000 mls @ 25 mls/hr IV ASDIRECTED NIRAV Last Admin: 04/17/21 01:00 Dose: 25 mls/hr Documented by: Oxytocin/Sodium Chloride (Oxytocin 30 Unit/500 Ml-Ns) 30 unit in 500 mls @ 250 mls/hr IV TITRATE NIRAV Lactated Ringer's (Ringers, Lactated) 1,000 mls @ 125 mls/hr IV ASDIRECTED [facility] Oxytocin/Lactated Ringer's (Pitocin In Lr 30 Units/500 Ml) 30 unit in 500 mls @ 999 mls/hr IV TITRATE [facility]; Protocol Magnesium Sulfate (Magnesium Sulfate In Water 20 Gm/500 Ml) 20 gm in 500 mls @ 50 mls/hr IV ASDIRECTED [facility] Stop: 04/17/21 10:01 Last Admin: 04/17/21 02:12 Dose: 2 gm/hr, 50 mls/hr Documented by: Ibuprofen (Ibuprofen 800 Mg Tab) 800 mg PO Q8H PRN PRN Reason: Cramping Labetalol HCl (Labetalol 100 Mg/20 Ml Mdv) 20 mg IVPUSH Q10M PRN; Protocol PRN Reason: Hypertension Last Admin: 04/16/21 06:49 Dose: 40 mg Documented by: Labetalol HCl (Labetalol 100 Mg Tab) 200 mg PO BID NIRAV Lidocaine HCl (Lidocaine 1% 50 Ml Mdv) 50 ml INJECT ONETIME PRN PRN Reason: Laceration repair Methylergonovine Maleate (Methylergonovine 0.2 Mg/1 Ml Amp) 0.2 mg IM ASDIRECTED PRN PRN Reason: Post Hemorrhage Misoprostol (Misoprostol 200 Mcg Tab) 200 mcg PO ONETIME PRN PRN Reason: Post Hemorrhage Misoprostol (Misoprostol 25 Mcg (1/4 Of 100 Mcg) Tab) 25 mcg VAG ONETIME PRN PRN Reason: Cervical Ripening Misoprostol (Misoprostol 25 Mcg (1/4 Of 100 Mcg) Tab) 25 mcg VAG Q4H PRN PRN Reason: Cervical Ripening Last Admin: 04/16/21 01:01 Dose: 25 mcg Documented by: Nalbuphine HCl (Nalbuphine 10 Mg/1 Ml Vial) 10 mg IVPUSH Q1H PRN PRN Reason: Pain (severe 7-10) Ondansetron HCl (Ondansetron 4 Mg/2 Ml Sdv) 4 mg IVPUSH Q4H PRN PRN Reason: Nausea Ondansetron HCl (Ondansetron 4 Mg/2 Ml Sdv) 4 mg IVPUSH Q4H PRN PRN Reason: Nausea/Vomiting Oxycodone/Acetaminophen (Acetaminophen/Oxycodone 325-5 Mg Tab) 1 tab PO Q4H PRN PRN Reason: Pain (severe 7-10) Oxycodone/Acetaminophen (Acetaminophen/Oxycodone 325-5 Mg Tab) 2 tab PO Q4H PRN PRN Reason: Pain (severe 7-10) Sodium Chloride (Sodium Chloride 0.9% 10 Ml Syringe) 10 ml FLUSH ASDIRECTED PRN PRN Reason: Keep Vein Open Sodium Chloride (Sodium Chloride 0.9% 2.5 Ml Syringe) 2.5 ml FLUSH ASDIRECTED PRN PRN Reason: Keep Vein Open Sodium Chloride (Sodium Chloride 0.9% 10 Ml Sdv) 10 ml IV ASDIRECTED PRN PRN Reason: IV Use Sterile Water (Water For Irrigation,Sterile 1,000 Ml Container) 1,000 ml IRR ASDIRECTED PRN PRN Reason: delivery Terbutaline Sulfate (Terbutaline 1 Mg/Ml Sdv) 0.25 mg SUBCUT ASDIRECTED PRN PRN Reason: Tacysystole Discontinued Medications Bupivacaine HCl (Bupivacaine 0.5% 10 Ml Sdv) Confirm Administered Dose 20 ml .ROUTE .[facility]-MED ONE Stop: 04/16/21 08:29 Cefazolin Sodium (Cefazolin 1 Gm Vial) Confirm Administered Dose 2 gm .ROUTE .STK-MED ONE Stop: 04/16/21 09:01 Citric Acid/Sodium Citrate (Citric Acid/Sodium Citrate Solution 30 Ml Cup) 30 ml PO ONETIME ONE Stop: 04/16/21 08:28 Fentanyl (Fentanyl 100 Mcg/2 Ml Sdv) Confirm Administered Dose 100 mcg .ROUTE .STK-MED ONE Stop: 04/16/21 08:28 Magnesium Sulfate 4 gm/ Premix 100 mls @ 300 mls/hr IV BOLUS ONE Stop: 04/16/21 05:15 Last Admin: 04/16/21 05:44 Dose: 300 mls/hr Documented by: Ropivacaine (Naropin 0.2%) Confirm Administered Dose 200 mls @ as directed .ROUTE .STK-MED ONE Stop: 04/16/21 07:45 Last Admin: 04/17/21 09:24 Dose: Not Given Documented by: Cefazolin Sodium/Dextrose 2 gm (/ Premix) 50 mls @ 100 mls/hr IV ONETIME ONE Stop: 04/16/21 08:56 Ketorolac Tromethamine (Ketorolac 30 Mg/Ml Sdv) Confirm Administered Dose 30 mg .ROUTE .STK-MED ONE Stop: 04/16/21 08:28 Ketorolac Tromethamine (Ketorolac 30 Mg/Ml Sdv) 30 mg IVPUSH Q6H NIRAV Stop: 04/17/21 08:31 Last Admin: 04/17/21 08:28 Dose: 30 mg Documented by: Lidocaine (Lidocaine 2% 5 Ml Sdv) Confirm Administered Dose 5 ml .ROUTE .STK-MED ONE Stop: 04/16/21 08:29 Lidocaine (Lidocaine 2% 5 Ml Sdv) Confirm Administered Dose 5 ml .ROUTE .STK-MED ONE Stop: 04/16/21 09:38 Measles/Mumps/Rubella Vaccine Live (Measles, Mumps & Rubella Vaccine 0.5 Ml Sdv) 0.5 ml SUBCUT .ONCE ONE Stop: 04/16/21 09:52 Miscellaneous Medication (Phenylephrine Hcl In 0.9% Nacl 1 Mg/10 Ml Syringe) Confirm Administered Dose 1 mg .ROUTE .STK-MED ONE Stop: 04/16/21 08:28 Morphine Sulfate (Morphine Pf 10 Mg/10 Ml Sdv) Confirm Administered Dose 10 mg .ROUTE .STK-MED ONE Stop: 04/16/21 09:34 Ondansetron HCl (Ondansetron 4 Mg/2 Ml Sdv) Confirm Administered Dose 4 mg .ROUTE .STK-MED ONE Stop: 04/16/21 08:28 Oxytocin (Oxytocin 10 Units/1 Ml Sdv) Confirm Administered Dose 30 unit .ROUTE .STK-MED ONE Stop: 04/16/21 08:28 - Interaction Feeding: Other (see below) (pumping) - Problem List & Annotations (1) delivery delivered SNOMED Code(s): 514964165 Code(s): O82 - ENCOUNTER FOR DELIVERY WITHOUT INDICATION Status: Acute Current Visit: Yes (2) Pre-eclampsia, severe, delivered SNOMED Code(s): 546679139, 059276356 Code(s): O14.14 - SEVERE PRE-ECLAMPSIA COMPLICATING CHILDBIRTH Status: Acute Current Visit: Yes - My Orders Last 24 Hours: My Active Orders 04/16/21 08:30 Oxytocin/0.9 % Sodium Chloride [Oxytocin 30 Unit/500 ML-NS] 30 unit in 500 ml IV TITRATE 04/16/21 09:51 Patient Status [ADT] Routine Ambulate [RC] PER UNIT ROUTINE Communication Order [RC] PER UNIT ROUTINE Communication Order [RC] PER UNIT ROUTINE Communication Order [RC] Per Unit Routine Intake and Output [RC] Q4H May Shower [RC] ASDIRECTED Notify Provider Intake and Out [RC] ASDIRECTED Notify Provider Vital Signs [RC] ASDIRECTED RT Incentive Spirometry [RC] Q2HWA Urinary Catheter Removal [RC] PER UNIT ROUTINE Vital Signs [RC] Q4H Acetaminophen/oxyCODONE [Percocet 325-5 MG] 1 tab PO Q4H PRN Acetaminophen/oxyCODONE [Percocet 325-5 MG] 2 tab PO Q4H PRN Lanolin [Lansinoh HPA] See Dose Instructions TOP ASDIRECTED PRN Ondansetron [Zofran] 4 mg IVPUSH Q4H PRN bisacodyL [Dulcolax] 10 mg RECTAL ONETIME PRN diphenhydrAMINE [Benadryl] 25 mg IVPUSH Q6H PRN Abdominal Binder [OM.PC] Routine Assess Lochia [WOMSER] Per Unit Routine Assess Uterine Involution [WOMSER] Per Unit Routine Breast Pump [WOMSER] Per Unit Routine DVT/VTE Prophylaxis Reflex [OM.PC] Routine Heat Therapy [OM.PC] Routine Ice Therapy [OM.PC] Routine Peripheral IV Discontinue [OM.PC] Routine Sequential Compression Device [OM.PC] Per Unit Routine 04/16/21 09:52 Antiembolic Devices [RC] PER UNIT ROUTINE 04/16/21 09:55 Antiembolic Devices [RC] .Routine VTE/DVT Education [RC] PER UNIT ROUTINE 04/16/21 09:56 Bedrest [RC] ASDIRECTED Communication Order [RC] PRN Communication Order [RC] PRN Equipment to Bedside [RC] PRN Notify Provider Status Change [RC] ASDIRECTED Notify Provider [RC] PRN Oxygen Therapy [RC] PRN Vital Signs [RC] ASDIRECTED Calcium Gluconate 1 gm IV ASDIRECTED PRN 04/16/21 10:00 Lactated Ringers [Ringers, Lactated] 1,000 ml IV ASDIRECTED Magnesium Sulfate/Water [Magnesium Sulfate in Water 20 GM/500 ML] 20 gm in 500 ml IV ASDIRECTED Oxytocin/Lactated Ringers [Pitocin in LR 30 Units/500 ML] 30 unit in 500 ml IV TITRATE Deep Tendon Reflexes [WOMSER] Q1H 04/16/21 Lunch Regular Diet [DIET] Deep Tendon Reflexes [WOMSER] Q1H 04/16/21 12:00 Deep Tendon Reflexes [WOMSER] Q1H 04/16/21 13:00 Deep Tendon Reflexes [WOMSER] Q1H 04/16/21 14:00 Deep Tendon Reflexes [WOMSER] Q1H 04/16/21 15:00 Deep Tendon Reflexes [WOMSER] Q1H 04/16/21 16:00 Deep Tendon Reflexes [WOMSER] Q1H 04/16/21 17:00 Deep Tendon Reflexes [WOMSER] Q1H 04/16/21 18:00 Deep Tendon Reflexes [WOMSER] Q1H 04/16/21 19:00 Deep Tendon Reflexes [WOMSER] Q1H 04/16/21 20:00 Deep Tendon Reflexes [WOMSER] Q1H 04/16/21 21:00 Docusate Sodium [Colace] 100 mg PO BID Deep Tendon Reflexes [WOMSER] Q1H 04/16/21 22:00 Deep Tendon Reflexes [WOMSER] [facility] 04/16/21 23:00 Deep Tendon Reflexes [WOMSER] [facility] 04/17/21 00:00 Deep Tendon Reflexes [WOMSER] [facility] 04/17/21 01:00 Deep Tendon Reflexes [WOMSER] [facility] 04/17/21 02:00 Deep Tendon Reflexes [WOMSER] [facility] 04/17/21 03:00 Deep Tendon Reflexes [WOMSER] [facility] 04/17/21 04:00 Deep Tendon Reflexes [WOMSER] [facility] 04/17/21 05:00 Deep Tendon Reflexes [WOMSER] [facility] 04/17/21 06:00 Deep Tendon Reflexes [WOMSER] [facility] 04/17/21 07:00 Deep Tendon Reflexes [WOMSER] [facility] 04/17/21 08:00 Deep Tendon Reflexes [WOMSER] [facility] 04/17/21 09:00 Labetalol [Normodyne] 200 mg PO BID Deep Tendon Reflexes [WOMSER] Q1 04/17/21 10:00 MAGNESIUM [CHEM] Q6H 04/17/21 20:30 Ibuprofen [Motrin] 800 mg PO Q8H PRN - Plan Plan:: I have reviewed and agree with the above. Discontinue magnesium at 24-hours . Will start Labetalol 200mg BID for mild-range blood pressures. Continue to monitor blood pressure closely. Anticipate discharge home on POD#3.
[2021-04-17] MEDS: Docusate Sodium 100 MG Cap PO SCH ×2 (08:28→22:09)
[2021-04-17] MEDS: Labetalol 100 MG Tab PO SCH ×2 (09:29→22:09)
[2021-04-17] MEDS: Acetaminophen/oxyCODONE 325-5 MG Tab PO PRN (17:04)
[2021-04-17] MEDS: Ibuprofen 800 MG Tab PO PRN (20:02)
[2021-04-18] MEDS: Acetaminophen/oxyCODONE 325-5 MG Tab PO PRN ×4 (03:16→20:35)
--- NOTE | 2021-04-18 07:30 | PCM.PNPP ---
- General Info Date of Service: 04/18/21 Subjective Update: Patient without complaints this morning. Denies preeclampsia symptoms. Minimal lochia. Functional Status: Reports: Pain Controlled, Tolerating Diet, Ambulating, Urinating - Review of Systems General: Reports: No Symptoms HEENT: Reports: No Symptoms Pulmonary: Reports: No Symptoms Cardiovascular: Reports: No Symptoms Gastrointestinal: Reports: No Symptoms Genitourinary: Reports: No Symptoms Musculoskeletal: Reports: No Symptoms Skin: Reports: No Symptoms Neurological: Reports: No Symptoms Psychiatric: Reports: No Symptoms - Patient Data Vital Signs - Most Recent: Last Vital Signs Temp 36.8 C 04/18/21 04:15 Pulse 81 04/18/21 04:15 Resp 14 04/18/21 04:15 BP 128/69 04/18/21 04:15 Pulse Ox 98 04/18/21 04:15 Weight - Most Recent: 99.337 kg I&O - Last 24 Hours: Intake & Output 04/17/21 04/18/21 04/18/21 22:59 06:59 14:59 Output Total 800 Balance -800 Lab Results - Last 24 Hours: Laboratory Results - last 24 hr 04/15/21 Range/Units 23:53 RPR Non-Reac (Non-Reac) Med Orders - Current: Current Medications Acetaminophen (Acetaminophen 500 Mg Tab) 1,000 mg PO Q4H PRN PRN Reason: Pain Last Admin: 04/16/21 05:30 Dose: 1,000 mg Documented by: Bisacodyl (Bisacodyl 10 Mg Supp) 10 mg RECTAL ONETIME PRN PRN Reason: Constipation Butorphanol Tartrate (Butorphanol 1 Mg/Ml Sdv) 1 mg IVPUSH Q1H PRN PRN Reason: Pain (severe 7-10) Calcium Gluconate (Calcium Gluconate 10% 1 Gm/10 Ml Sdv) 1 gm IV ASDIRECTED PRN PRN Reason: respiratory distress Calcium Gluconate (Calcium Gluconate 10% 1 Gm/10 Ml Sdv) 1 gm IV ASDIRECTED PRN PRN Reason: respiratory distress Carboprost Tromethamine (Carboprost Tromethamine 250 Mcg/1 Ml Amp) 250 mcg IM ASDIRECTED PRN PRN Reason: Post Hemorrhage Diphenhydramine HCl (Diphenhydramine 50 Mg/Ml Sdv) 25 mg IVPUSH Q6H PRN PRN Reason: Itching or Nausea Docusate Sodium (Docusate Sodium 100 Mg Cap) 100 mg PO BID NIRAV Last Admin: 04/17/21 22:09 Dose: 100 mg Documented by: Emollient Ointment (Lanolin 100% Cream 7 Gm Tube) 0 gm TOP ASDIRECTED PRN PRN Reason: Sore Nipples Last Admin: 04/16/21 21:34 Dose: 1 tube Documented by: Oxytocin/Sodium Chloride (Oxytocin 30 Unit/500 Ml-Ns) 30 unit in 500 mls @ 999 mls/hr IV TITRATE NIRAV Tranexamic Acid 1,000 mg/ (Sodium Chloride) 110 mls @ 660 mls/hr IV ONETIME PRN PRN Reason: Bleeding Oxytocin/Sodium Chloride (Oxytocin 30 Unit/500 Ml-Ns) 30 unit in 500 mls @ 2 mls/hr IV TITRATE NIRAV; Protocol Lactated Ringer's (Ringers, Lactated) 1,000 mls @ 150 mls/hr IV ASDIRECTED [facility] Last Admin: 04/16/21 00:53 Dose: 150 mls/hr Documented by: Magnesium Sulfate (Magnesium Sulfate In Water 20 Gm/500 Ml) 20 gm in 500 mls @ 50 mls/hr IV ASDIRECTED NIRAV Last Admin: 04/16/21 06:00 Dose: 2 gm/hr, 50 mls/hr Documented by: Sodium Chloride (Normal Saline) 1,000 mls @ 25 mls/hr IV ASDIRECTED NIRAV Last Infusion: 04/17/21 09:45 Dose: 25 mls/hr Documented by: Oxytocin/Sodium Chloride (Oxytocin 30 Unit/500 Ml-Ns) 30 unit in 500 mls @ 250 mls/hr IV TITRATE NIRAV Lactated Ringer's (Ringers, Lactated) 1,000 mls @ 125 mls/hr IV ASDIRECTED [facility] Oxytocin/Lactated Ringer's (Pitocin In Lr 30 Units/500 Ml) 30 unit in 500 mls @ 999 mls/hr IV TITRATE [facility]; Protocol Ibuprofen (Ibuprofen 800 Mg Tab) 800 mg PO Q8H PRN PRN Reason: Cramping Last Admin: 04/17/21 20:02 Dose: 800 mg Documented by: Labetalol HCl (Labetalol 100 Mg/20 Ml Mdv) 20 mg IVPUSH Q10M PRN; Protocol PRN Reason: Hypertension Last Admin: 04/16/21 06:49 Dose: 40 mg Documented by: Labetalol HCl (Labetalol 100 Mg Tab) 200 mg PO BID NIRAV Last Admin: 04/17/21 22:09 Dose: 200 mg Documented by: Lidocaine HCl (Lidocaine 1% 50 Ml Mdv) 50 ml INJECT ONETIME PRN PRN Reason: Laceration repair Methylergonovine Maleate (Methylergonovine 0.2 Mg/1 Ml Amp) 0.2 mg IM ASDIRECTED PRN PRN Reason: Post Hemorrhage Misoprostol (Misoprostol 200 Mcg Tab) 200 mcg PO ONETIME PRN PRN Reason: Post Hemorrhage Misoprostol (Misoprostol 25 Mcg (1/4 Of 100 Mcg) Tab) 25 mcg VAG ONETIME PRN PRN Reason: Cervical Ripening Misoprostol (Misoprostol 25 Mcg (1/4 Of 100 Mcg) Tab) 25 mcg VAG Q4H PRN PRN Reason: Cervical Ripening Last Admin: 04/16/21 01:01 Dose: 25 mcg Documented by: Nalbuphine HCl (Nalbuphine 10 Mg/1 Ml Vial) 10 mg IVPUSH Q1H PRN PRN Reason: Pain (severe 7-10) Ondansetron HCl (Ondansetron 4 Mg/2 Ml Sdv) 4 mg IVPUSH Q4H PRN PRN Reason: Nausea Ondansetron HCl (Ondansetron 4 Mg/2 Ml Sdv) 4 mg IVPUSH Q4H PRN PRN Reason: Nausea/Vomiting Oxycodone/Acetaminophen (Acetaminophen/Oxycodone 325-5 Mg Tab) 1 tab PO Q4H PRN PRN Reason: Pain (severe 7-10) Last Admin: 04/18/21 03:16 Dose: 1 tab Documented by: Oxycodone/Acetaminophen (Acetaminophen/Oxycodone 325-5 Mg Tab) 2 tab PO Q4H PRN PRN Reason: Pain (severe 7-10) Sodium Chloride (Sodium Chloride 0.9% 10 Ml Syringe) 10 ml FLUSH ASDIRECTED PRN PRN Reason: Keep Vein Open Sodium Chloride (Sodium Chloride 0.9% 2.5 Ml Syringe) 2.5 ml FLUSH ASDIRECTED PRN PRN Reason: Keep Vein Open Sodium Chloride (Sodium Chloride 0.9% 10 Ml Sdv) 10 ml IV ASDIRECTED PRN PRN Reason: IV Use Sterile Water (Water For Irrigation,Sterile 1,000 Ml Container) 1,000 ml IRR ASDIRECTED PRN PRN Reason: delivery Terbutaline Sulfate (Terbutaline 1 Mg/Ml Sdv) 0.25 mg SUBCUT ASDIRECTED PRN PRN Reason: Tacysystole Discontinued Medications Bupivacaine HCl (Bupivacaine 0.5% 10 Ml Sdv) Confirm Administered Dose 20 ml .ROUTE .STK-MED ONE Stop: 04/16/21 08:29 Cefazolin Sodium (Cefazolin 1 Gm Vial) Confirm Administered Dose 2 gm .ROUTE .STK-MED ONE Stop: 04/16/21 09:01 Citric Acid/Sodium Citrate (Citric Acid/Sodium Citrate Solution 30 Ml Cup) 30 ml PO ONETIME ONE Stop: 04/16/21 08:28 Last Admin: 04/17/21 13:13 Dose: Not Given Documented by: Fentanyl (Fentanyl 100 Mcg/2 Ml Sdv) Confirm Administered Dose 100 mcg .ROUTE .STK-MED ONE Stop: 04/16/21 08:28 Magnesium Sulfate 4 gm/ Premix 100 mls @ 300 mls/hr IV BOLUS ONE Stop: 04/16/21 05:15 Last Admin: 04/16/21 05:44 Dose: 300 mls/hr Documented by: Ropivacaine (Naropin 0.2%) Confirm Administered Dose 200 mls @ as directed .ROUTE .STK-MED ONE Stop: 04/16/21 07:45 Last Admin: 04/17/21 09:24 Dose: Not Given Documented by: Cefazolin Sodium/Dextrose 2 gm (/ Premix) 50 mls @ 100 mls/hr IV ONETIME ONE Stop: 04/16/21 08:56 Last Admin: 04/17/21 13:14 Dose: Not Given Documented by: Magnesium Sulfate (Magnesium Sulfate In Water 20 Gm/500 Ml) 20 gm in 500 mls @ 50 mls/hr IV ASDIRECTED NIRAV Stop: 04/17/21 10:01 Last Admin: 04/17/21 02:12 Dose: 2 gm/hr, 50 mls/hr Documented by: Ketorolac Tromethamine (Ketorolac 30 Mg/Ml Sdv) Confirm Administered Dose 30 mg .ROUTE .STK-MED ONE Stop: 04/16/21 08:28 Ketorolac Tromethamine (Ketorolac 30 Mg/Ml Sdv) 30 mg IVPUSH Q6H NIRAV Stop: 04/17/21 08:31 Last Admin: 04/17/21 08:28 Dose: 30 mg Documented by: Lidocaine (Lidocaine 2% 5 Ml Sdv) Confirm Administered Dose 5 ml .ROUTE .STK-MED ONE Stop: 04/16/21 08:29 Lidocaine (Lidocaine 2% 5 Ml Sdv) Confirm Administered Dose 5 ml .ROUTE .STK-MED ONE Stop: 04/16/21 09:38 Measles/Mumps/Rubella Vaccine Live (Measles, Mumps & Rubella Vaccine 0.5 Ml Sdv) 0.5 ml SUBCUT .ONCE ONE Stop: 04/16/21 09:52 Miscellaneous Medication (Phenylephrine Hcl In 0.9% Nacl 1 Mg/10 Ml Syringe) Confirm Administered Dose 1 mg .ROUTE .STK-MED ONE Stop: 04/16/21 08:28 Morphine Sulfate (Morphine Pf 10 Mg/10 Ml Sdv) Confirm Administered Dose 10 mg .ROUTE .STK-MED ONE Stop: 04/16/21 09:34 Ondansetron HCl (Ondansetron 4 Mg/2 Ml Sdv) Confirm Administered Dose 4 mg .ROUTE .STK-MED ONE Stop: 04/16/21 08:28 Oxytocin (Oxytocin 10 Units/1 Ml Sdv) Confirm Administered Dose 30 unit .ROUTE .STK-MED ONE Stop: 04/16/21 08:28 - Infant Interaction Infant Disposition, : [place] to Nursery Infant Feeding: Other (see below) (pumping) Other Feeding: Formula while in nursery. Attemping when able Support Person: - Recovery Exam Fundal Tone: Firm Fundal Level: 2 Fingerbreadths Below Umbilicus Fundal Placement: Midline Lochia Amount: Scant Lochia Color: Rubra/Red Bladder Status: Voiding Urinary Elimination: Voided - Exam General: Alert, Oriented Neck: Supple Lungs: Normal Respiratory Effort GI/Abdominal Exam: Soft, Non-Tender, No Distention Extremities: Non-Tender, No Pedal Edema Skin: Warm, Dry, Intact Wound/Incisions: Healing Well Neurological: No New Focal Deficit Psy/Mental Status: Alert, Normal Affect, Normal Mood - Problem List & Annotations (1) delivery delivered SNOMED Code(s): 556216619 Code(s): O82 - ENCOUNTER FOR DELIVERY WITHOUT INDICATION Status: Acute Current Visit: Yes (2) Pre-eclampsia, severe, delivered SNOMED Code(s): 598660392, 068162230 Code(s): O14.14 - SEVERE PRE-ECLAMPSIA COMPLICATING CHILDBIRTH Status: Acute Current Visit: Yes - Problem List Review Problem List Initiated/Reviewed/Updated: Yes - My Orders Last 24 Hours: My Active Orders 04/17/21 07:00 Deep Tendon Reflexes [WOMSER] Q1H 04/17/21 08:00 Deep Tendon Reflexes [WOMSER] Q1H 04/17/21 09:00 Labetalol [Normodyne] 200 mg PO BID Deep Tendon Reflexes [WOMSER] Q1H 04/17/21 20:30 Ibuprofen [Motrin] 800 mg PO Q8H PRN - Assessment Assessment:: 25-year-old s/p 1LTCS at 37w3d for persistent category 2 FHTs, POD#2 - Plan Plan:: Continue routine care. Preeclampsia with severe features - s/p Magnesium for seizure prophylaxis. Continue Labetalol 200mg BID. Monitor blood pressures. GBS negative Dispo - stay today for blood pressure monitoring.
[2021-04-18] MEDS: Docusate Sodium 100 MG Cap PO SCH ×2 (08:17→20:34)
[2021-04-18] MEDS: Ibuprofen 800 MG Tab PO PRN ×2 (08:17→20:35)
[2021-04-18] MEDS: Labetalol 100 MG Tab PO SCH ×2 (08:18→20:34)
--- NOTE | 2021-04-18 14:59 | PCM48HPAN ---
Post Anesthesia Note - EVALUATION WITHIN 48HRS OF ANESTHETIC Vital Signs in Normal Range: Yes Patient Participated in Evaluation: Yes Respiratory Function Stable: Yes Airway Patent: Yes Cardiovascular Function Stable: Yes Hydration Status Stable: Yes Pain Control Satisfactory: Yes Nausea and Vomiting Control Satisfactory: Yes Mental Status Recovered: Yes Vital Signs: Last Vital Signs Temp 97.9 F 04/18/21 12:00 Pulse 78 04/18/21 12:00 Resp 15 04/18/21 12:00 BP 125/70 04/18/21 12:00 Pulse Ox 98 04/18/21 12:00
--- NOTE | 2021-04-19 07:40 | PCM.PNPP ---
<Sanjuanita Marino - Last Filed: 04/19/21 07:36> - General Info Date of Service: 04/19/21 Admission Dx/Problem (Free Text): Labor Subjective Update: Patient without complaints this morning. Denies preeclampsia symptoms. Minimal lochia. Pain controlled, ambulating, and urinating well. - Review of Systems General: Reports: No Symptoms HEENT: Reports: No Symptoms Pulmonary: Reports: No Symptoms Cardiovascular: Reports: No Symptoms Gastrointestinal: Reports: No Symptoms Genitourinary: Reports: No Symptoms Musculoskeletal: Reports: No Symptoms Skin: Reports: No Symptoms Neurological: Reports: No Symptoms Psychiatric: Reports: No Symptoms - General Info Date of Service: 04/19/21 - Patient Data Vital Signs - Most Recent: Last Vital Signs Temp 36.3 C 04/19/21 04:00 Pulse 87 04/19/21 04:00 Resp 18 04/19/21 04:00 BP 156/90 H 04/19/21 04:00 Pulse Ox 97 04/19/21 04:00 Weight - Most Recent: 99.337 kg Med Orders - Current: Current Medications Acetaminophen (Acetaminophen 500 Mg Tab) 1,000 mg PO Q4H PRN PRN Reason: Pain Last Admin: 04/16/21 05:30 Dose: 1,000 mg Documented by: Bisacodyl (Bisacodyl 10 Mg Supp) 10 mg RECTAL ONETIME PRN PRN Reason: Constipation Butorphanol Tartrate (Butorphanol 1 Mg/Ml Sdv) 1 mg IVPUSH Q1H PRN PRN Reason: Pain (severe 7-10) Calcium Gluconate (Calcium Gluconate 10% 1 Gm/10 Ml Sdv) 1 gm IV ASDIRECTED PRN PRN Reason: respiratory distress Calcium Gluconate (Calcium Gluconate 10% 1 Gm/10 Ml Sdv) 1 gm IV ASDIRECTED PRN PRN Reason: respiratory distress Carboprost Tromethamine (Carboprost Tromethamine 250 Mcg/1 Ml Amp) 250 mcg IM ASDIRECTED PRN PRN Reason: Post Hemorrhage Diphenhydramine HCl (Diphenhydramine 50 Mg/Ml Sdv) 25 mg IVPUSH Q6H PRN PRN Reason: Itching or Nausea Docusate Sodium (Docusate Sodium 100 Mg Cap) 100 mg PO BID NIRAV Last Admin: 04/18/21 20:34 Dose: 100 mg Documented by: Emollient Ointment (Lanolin 100% Cream 7 Gm Tube) 0 gm TOP ASDIRECTED PRN PRN Reason: Sore Nipples Last Admin: 04/16/21 21:34 Dose: 1 tube Documented by: Oxytocin/Sodium Chloride (Oxytocin 30 Unit/500 Ml-Ns) 30 unit in 500 mls @ 999 mls/hr IV TITRATE NIRAV Tranexamic Acid 1,000 mg/ (Sodium Chloride) 110 mls @ 660 mls/hr IV ONETIME PRN PRN Reason: Bleeding Oxytocin/Sodium Chloride (Oxytocin 30 Unit/500 Ml-Ns) 30 unit in 500 mls @ 2 mls/hr IV TITRATE NIRAV; Protocol Lactated Ringer's (Ringers, Lactated) 1,000 mls @ 150 mls/hr IV ASDIRECTED NIRAV Last Admin: 04/16/21 00:53 Dose: 150 mls/hr Documented by: Magnesium Sulfate (Magnesium Sulfate In Water 20 Gm/500 Ml) 20 gm in 500 mls @ 50 mls/hr IV ASDIRECTED NIRAV Last Admin: 04/16/21 06:00 Dose: 2 gm/hr, 50 mls/hr Documented by: Sodium Chloride (Normal Saline) 1,000 mls @ 25 mls/hr IV ASDIRECTED NIRAV Last Infusion: 04/17/21 09:45 Dose: 25 mls/hr Documented by: Oxytocin/Sodium Chloride (Oxytocin 30 Unit/500 Ml-Ns) 30 unit in 500 mls @ 250 mls/hr IV TITRATE NIRAV Lactated Ringer's (Ringers, Lactated) 1,000 mls @ 125 mls/hr IV ASDIRECTED NIRAV Oxytocin/Lactated Ringer's (Pitocin In Lr 30 Units/500 Ml) 30 unit in 500 mls @ 999 mls/hr IV TITRATE NIRAV; Protocol Ibuprofen (Ibuprofen 800 Mg Tab) 800 mg PO Q8H PRN PRN Reason: Cramping Last Admin: 04/18/21 20:35 Dose: 800 mg Documented by: Labetalol HCl (Labetalol 100 Mg/20 Ml Mdv) 20 mg IVPUSH Q10M PRN; Protocol PRN Reason: Hypertension Last Admin: 04/16/21 06:49 Dose: 40 mg Documented by: Labetalol HCl (Labetalol 100 Mg Tab) 200 mg PO BID NIRAV Last Admin: 04/18/21 20:34 Dose: 200 mg Documented by: Lidocaine HCl (Lidocaine 1% 50 Ml Mdv) 50 ml INJECT ONETIME PRN PRN Reason: Laceration repair Methylergonovine Maleate (Methylergonovine 0.2 Mg/1 Ml Amp) 0.2 mg IM ASDIRECTED PRN PRN Reason: Post Hemorrhage Misoprostol (Misoprostol 200 Mcg Tab) 200 mcg PO ONETIME PRN PRN Reason: Post Hemorrhage Misoprostol (Misoprostol 25 Mcg (1/4 Of 100 Mcg) Tab) 25 mcg VAG ONETIME PRN PRN Reason: Cervical Ripening Misoprostol (Misoprostol 25 Mcg (1/4 Of 100 Mcg) Tab) 25 mcg VAG Q4H PRN PRN Reason: Cervical Ripening Last Admin: 04/16/21 01:01 Dose: 25 mcg Documented by: Nalbuphine HCl (Nalbuphine 10 Mg/1 Ml Vial) 10 mg IVPUSH Q1H PRN PRN Reason: Pain (severe 7-10) Ondansetron HCl (Ondansetron 4 Mg/2 Ml Sdv) 4 mg IVPUSH Q4H PRN PRN Reason: Nausea Ondansetron HCl (Ondansetron 4 Mg/2 Ml Sdv) 4 mg IVPUSH Q4H PRN PRN Reason: Nausea/Vomiting Oxycodone/Acetaminophen (Acetaminophen/Oxycodone 325-5 Mg Tab) 1 tab PO Q4H PRN PRN Reason: Pain (severe 7-10) Last Admin: 04/18/21 20:35 Dose: 1 tab Documented by: Oxycodone/Acetaminophen (Acetaminophen/Oxycodone 325-5 Mg Tab) 2 tab PO Q4H PRN PRN Reason: Pain (severe 7-10) Sodium Chloride (Sodium Chloride 0.9% 10 Ml Syringe) 10 ml FLUSH ASDIRECTED PRN PRN Reason: Keep Vein Open Sodium Chloride (Sodium Chloride 0.9% 2.5 Ml Syringe) 2.5 ml FLUSH ASDIRECTED PRN PRN Reason: Keep Vein Open Sodium Chloride (Sodium Chloride 0.9% 10 Ml Sdv) 10 ml IV ASDIRECTED PRN PRN Reason: IV Use Sterile Water (Water For Irrigation,Sterile 1,000 Ml Container) 1,000 ml IRR ASDIRECTED PRN PRN Reason: delivery Terbutaline Sulfate (Terbutaline 1 Mg/Ml Sdv) 0.25 mg SUBCUT ASDIRECTED PRN PRN Reason: Tacysystole Discontinued Medications Bupivacaine HCl (Bupivacaine 0.5% 10 Ml Sdv) Confirm Administered Dose 20 ml .ROUTE .STK-MED ONE Stop: 04/16/21 08:29 Cefazolin Sodium (Cefazolin 1 Gm Vial) Confirm Administered Dose 2 gm .ROUTE .STK-MED ONE Stop: 04/16/21 09:01 Citric Acid/Sodium Citrate (Citric Acid/Sodium Citrate Solution 30 Ml Cup) 30 ml PO ONETIME ONE Stop: 04/16/21 08:28 Last Admin: 04/17/21 13:13 Dose: Not Given Documented by: Fentanyl (Fentanyl 100 Mcg/2 Ml Sdv) Confirm Administered Dose 100 mcg .ROUTE .STK-MED ONE Stop: 04/16/21 08:28 Magnesium Sulfate 4 gm/ Premix 100 mls @ 300 mls/hr IV BOLUS ONE Stop: 04/16/21 05:15 Last Admin: 04/16/21 05:44 Dose: 300 mls/hr Documented by: Ropivacaine (Naropin 0.2%) Confirm Administered Dose 200 mls @ as directed .ROUTE .STK-MED ONE Stop: 04/16/21 07:45 Last Admin: 04/17/21 09:24 Dose: Not Given Documented by: Cefazolin Sodium/Dextrose 2 gm (/ Premix) 50 mls @ 100 mls/hr IV ONETIME ONE Stop: 04/16/21 08:56 Last Admin: 04/17/21 13:14 Dose: Not Given Documented by: Magnesium Sulfate (Magnesium Sulfate In Water 20 Gm/500 Ml) 20 gm in 500 mls @ 50 mls/hr IV ASDIRECTED NIRAV Stop: 04/17/21 10:01 Last Admin: 04/17/21 02:12 Dose: 2 gm/hr, 50 mls/hr Documented by: Ketorolac Tromethamine (Ketorolac 30 Mg/Ml Sdv) Confirm Administered Dose 30 mg .ROUTE .STK-MED ONE Stop: 04/16/21 08:28 Ketorolac Tromethamine (Ketorolac 30 Mg/Ml Sdv) 30 mg IVPUSH Q6H [facility] Stop: 04/17/21 08:31 Last Admin: 04/17/21 08:28 Dose: 30 mg Documented by: Lidocaine (Lidocaine 2% 5 Ml Sdv) Confirm Administered Dose 5 ml .ROUTE .STK-MED ONE Stop: 04/16/21 08:29 Lidocaine (Lidocaine 2% 5 Ml Sdv) Confirm Administered Dose 5 ml .ROUTE .STK-MED ONE Stop: 04/16/21 09:38 Measles/Mumps/Rubella Vaccine Live (Measles, Mumps & Rubella Vaccine 0.5 Ml Sdv) 0.5 ml SUBCUT .ONCE ONE Stop: 04/16/21 09:52 Miscellaneous Medication (Phenylephrine Hcl In 0.9% Nacl 1 Mg/10 Ml Syringe) Confirm Administered Dose 1 mg .ROUTE .STK-MED ONE Stop: 04/16/21 08:28 Morphine Sulfate (Morphine Pf 10 Mg/10 Ml Sdv) Confirm Administered Dose 10 mg .ROUTE .STK-MED ONE Stop: 04/16/21 09:34 Ondansetron HCl (Ondansetron 4 Mg/2 Ml Sdv) Confirm Administered Dose 4 mg .ROUTE .STK-MED ONE Stop: 04/16/21 08:28 Oxytocin (Oxytocin 10 Units/1 Ml Sdv) Confirm Administered Dose 30 unit .ROUTE .STK-MED ONE Stop: 04/16/21 08:28 - Infant Interaction Infant Disposition, : [place] to Nursery Infant Feeding: Bottle Fed Other Feeding: Formula while in nursery. Attemping when able Support Person: - Recovery Exam Fundal Tone: Firm Fundal Level: 2 Fingerbreadths Below Umbilicus Fundal Placement: Midline Lochia Amount: Scant Lochia Color: Rubra/Red Episiotomy/Laceration: None Bladder Status: Voiding Urinary Elimination: Voided - Exam General: Alert, Oriented Neck: Supple Lungs: Clear to Auscultation, Normal Respiratory Effort Cardiovascular: Regular Rate, Regular Rhythm GI/Abdominal Exam: Soft, Non-Tender Extremities: Normal Inspection, Normal Range of Motion, Non-Tender, No Pedal Edema Skin: Warm, Dry Wound/Incisions: Healing Well, Dressing Dry and Intact Neurological: No New Focal Deficit Psy/Mental Status: Alert, Normal Affect, Normal Mood - Problem List Review Problem List Initiated/Reviewed/Updated: Yes - Assessment Assessment:: 25-year-old s/p 1LTCS at 37w3d for persistent category 2 FHTs, POD#2. BPs from 145-157/ 70-90. Denies symptoms. - Plan Plan:: Continue routine care. Preeclampsia with severe features - s/p Magnesium for seizure prophylaxis. Continue Labetalol 200mg BID. Monitor blood pressures. GBS negative Discharge pending BP control. <Kaitlynn Dempsey - Last Filed: 04/19/21 08:36> - General Info Functional Status: Reports: Pain Controlled, Tolerating Diet, Ambulating, Urinating - Patient Data Vital Signs - Most Recent: Last Vital Signs Temp 37.1 C 04/19/21 07:41 Pulse 81 04/19/21 07:41 Resp 16 04/19/21 07:41 BP 151/93 H 04/19/21 08:08 Pulse Ox 97 04/19/21 07:41 Med Orders - Current: Current Medications Acetaminophen (Acetaminophen 500 Mg Tab) 1,000 mg PO Q4H PRN PRN Reason: Pain Last Admin: 04/16/21 05:30 Dose: 1,000 mg Documented by: Bisacodyl (Bisacodyl 10 Mg Supp) 10 mg RECTAL ONETIME PRN PRN Reason: Constipation Butorphanol Tartrate (Butorphanol 1 Mg/Ml Sdv) 1 mg IVPUSH Q1H PRN PRN Reason: Pain (severe 7-10) Calcium Gluconate (Calcium Gluconate 10% 1 Gm/10 Ml Sdv) 1 gm IV ASDIRECTED PRN PRN Reason: respiratory distress Calcium Gluconate (Calcium Gluconate 10% 1 Gm/10 Ml Sdv) 1 gm IV ASDIRECTED PRN PRN Reason: respiratory distress Carboprost Tromethamine (Carboprost Tromethamine 250 Mcg/1 Ml Amp) 250 mcg IM ASDIRECTED PRN PRN Reason: Post Hemorrhage Diphenhydramine HCl (Diphenhydramine 50 Mg/Ml Sdv) 25 mg IVPUSH Q6H PRN PRN Reason: Itching or Nausea Docusate Sodium (Docusate Sodium 100 Mg Cap) 100 mg PO BID NIRAV Last Admin: 04/18/21 20:34 Dose: 100 mg Documented by: Emollient Ointment (Lanolin 100% Cream 7 Gm Tube) 0 gm TOP ASDIRECTED PRN PRN Reason: Sore Nipples Last Admin: 04/16/21 21:34 Dose: 1 tube Documented by: Oxytocin/Sodium Chloride (Oxytocin 30 Unit/500 Ml-Ns) 30 unit in 500 mls @ 999 mls/hr IV TITRATE NIRAV Tranexamic Acid 1,000 mg/ (Sodium Chloride) 110 mls @ 660 mls/hr IV ONETIME PRN PRN Reason: Bleeding Oxytocin/Sodium Chloride (Oxytocin 30 Unit/500 Ml-Ns) 30 unit in 500 mls @ 2 mls/hr IV TITRATE NIRAV; Protocol Lactated Ringer's (Ringers, Lactated) 1,000 mls @ 150 mls/hr IV ASDIRECTED NIRAV Last Admin: 04/16/21 00:53 Dose: 150 mls/hr Documented by: Magnesium Sulfate (Magnesium Sulfate In Water 20 Gm/500 Ml) 20 gm in 500 mls @ 50 mls/hr IV ASDIRECTED NIRAV Last Admin: 04/16/21 06:00 Dose: 2 gm/hr, 50 mls/hr Documented by: Sodium Chloride (Normal Saline) 1,000 mls @ 25 mls/hr IV ASDIRECTED NIRAV Last Infusion: 04/17/21 09:45 Dose: 25 mls/hr Documented by: Oxytocin/Sodium Chloride (Oxytocin 30 Unit/500 Ml-Ns) 30 unit in 500 mls @ 250 mls/hr IV TITRATE NIRAV Lactated Ringer's (Ringers, Lactated) 1,000 mls @ 125 mls/hr IV ASDIRECTED NIRAV Oxytocin/Lactated Ringer's (Pitocin In Lr 30 Units/500 Ml) 30 unit in 500 mls @ 999 mls/hr IV TITRATE [facility]; Protocol Ibuprofen (Ibuprofen 800 Mg Tab) 800 mg PO Q8H PRN PRN Reason: Cramping Last Admin: 04/18/21 20:35 Dose: 800 mg Documented by: Labetalol HCl (Labetalol 100 Mg/20 Ml Mdv) 20 mg IVPUSH Q10M PRN; Protocol PRN Reason: Hypertension Last Admin: 04/16/21 06:49 Dose: 40 mg Documented by: Labetalol HCl (Labetalol 100 Mg Tab) 400 mg PO BID NIRAV Lidocaine HCl (Lidocaine 1% 50 Ml Mdv) 50 ml INJECT ONETIME PRN PRN Reason: Laceration repair Methylergonovine Maleate (Methylergonovine 0.2 Mg/1 Ml Amp) 0.2 mg IM ASDIRECTED PRN PRN Reason: Post Hemorrhage Misoprostol (Misoprostol 200 Mcg Tab) 200 mcg PO ONETIME PRN PRN Reason: Post Hemorrhage Misoprostol (Misoprostol 25 Mcg (1/4 Of 100 Mcg) Tab) 25 mcg VAG ONETIME PRN PRN Reason: Cervical Ripening Misoprostol (Misoprostol 25 Mcg (1/4 Of 100 Mcg) Tab) 25 mcg VAG Q4H PRN PRN Reason: Cervical Ripening Last Admin: 04/16/21 01:01 Dose: 25 mcg Documented by: Nalbuphine HCl (Nalbuphine 10 Mg/1 Ml Vial) 10 mg IVPUSH Q1H PRN PRN Reason: Pain (severe 7-10) Ondansetron HCl (Ondansetron 4 Mg/2 Ml Sdv) 4 mg IVPUSH Q4H PRN PRN Reason: Nausea Ondansetron HCl (Ondansetron 4 Mg/2 Ml Sdv) 4 mg IVPUSH Q4H PRN PRN Reason: Nausea/Vomiting Oxycodone/Acetaminophen (Acetaminophen/Oxycodone 325-5 Mg Tab) 1 tab PO Q4H PRN PRN Reason: Pain (severe 7-10) Last Admin: 04/18/21 20:35 Dose: 1 tab Documented by: Oxycodone/Acetaminophen (Acetaminophen/Oxycodone 325-5 Mg Tab) 2 tab PO Q4H PRN PRN Reason: Pain (severe 7-10) Sodium Chloride (Sodium Chloride 0.9% 10 Ml Syringe) 10 ml FLUSH ASDIRECTED PRN PRN Reason: Keep Vein Open Sodium Chloride (Sodium Chloride 0.9% 2.5 Ml Syringe) 2.5 ml FLUSH ASDIRECTED PRN PRN Reason: Keep Vein Open Sodium Chloride (Sodium Chloride 0.9% 10 Ml Sdv) 10 ml IV ASDIRECTED PRN PRN Reason: IV Use Sterile Water (Water For Irrigation,Sterile 1,000 Ml Container) 1,000 ml IRR ASDIRECTED PRN PRN Reason: delivery Terbutaline Sulfate (Terbutaline 1 Mg/Ml Sdv) 0.25 mg SUBCUT ASDIRECTED PRN PRN Reason: Tacysystole Discontinued Medications Bupivacaine HCl (Bupivacaine 0.5% 10 Ml Sdv) Confirm Administered Dose 20 ml .ROUTE .STK-MED ONE Stop: 04/16/21 08:29 Cefazolin Sodium (Cefazolin 1 Gm Vial) Confirm Administered Dose 2 gm .ROUTE .STK-MED ONE Stop: 04/16/21 09:01 Citric Acid/Sodium Citrate (Citric Acid/Sodium Citrate Solution 30 Ml Cup) 30 ml PO ONETIME ONE Stop: 04/16/21 08:28 Last Admin: 04/17/21 13:13 Dose: Not Given Documented by: Fentanyl (Fentanyl 100 Mcg/2 Ml Sdv) Confirm Administered Dose 100 mcg .ROUTE .STK-MED ONE Stop: 04/16/21 08:28 Magnesium Sulfate 4 gm/ Premix 100 mls @ 300 mls/hr IV BOLUS ONE Stop: 04/16/21 05:15 Last Admin: 04/16/21 05:44 Dose: 300 mls/hr Documented by: Ropivacaine (Naropin 0.2%) Confirm Administered Dose 200 mls @ as directed .ROUTE .[facility]-MED ONE Stop: 04/16/21 07:45 Last Admin: 04/17/21 09:24 Dose: Not Given Documented by: Cefazolin Sodium/Dextrose 2 gm (/ Premix) 50 mls @ 100 mls/hr IV ONETIME ONE Stop: 04/16/21 08:56 Last Admin: 04/17/21 13:14 Dose: Not Given Documented by: Magnesium Sulfate (Magnesium Sulfate In Water 20 Gm/500 Ml) 20 gm in 500 mls @ 50 mls/hr IV ASDIRECTED [facility] Stop: 04/17/21 10:01 Last Admin: 04/17/21 02:12 Dose: 2 gm/hr, 50 mls/hr Documented by: Ketorolac Tromethamine (Ketorolac 30 Mg/Ml Sdv) Confirm Administered Dose 30 mg .ROUTE .STK-MED ONE Stop: 04/16/21 08:28 Ketorolac Tromethamine (Ketorolac 30 Mg/Ml Sdv) 30 mg IVPUSH Q6H [facility] Stop: 04/17/21 08:31 Last Admin: 04/17/21 08:28 Dose: 30 mg Documented by: Labetalol HCl (Labetalol 100 Mg Tab) 200 mg PO BID [facility] Last Admin: 04/18/21 20:34 Dose: 200 mg Documented by: Lidocaine (Lidocaine 2% 5 Ml Sdv) Confirm Administered Dose 5 ml .ROUTE .STK-MED ONE Stop: 04/16/21 08:29 Lidocaine (Lidocaine 2% 5 Ml Sdv) Confirm Administered Dose 5 ml .ROUTE .STK-MED ONE Stop: 04/16/21 09:38 Measles/Mumps/Rubella Vaccine Live (Measles, Mumps & Rubella Vaccine 0.5 Ml Sdv) 0.5 ml SUBCUT .ONCE ONE Stop: 04/16/21 09:52 Miscellaneous Medication (Phenylephrine Hcl In 0.9% Nacl 1 Mg/10 Ml Syringe) Confirm Administered Dose 1 mg .ROUTE .STK-MED ONE Stop: 04/16/21 08:28 Morphine Sulfate (Morphine Pf 10 Mg/10 Ml Sdv) Confirm Administered Dose 10 mg .ROUTE .STK-MED ONE Stop: 04/16/21 09:34 Ondansetron HCl (Ondansetron 4 Mg/2 Ml Sdv) Confirm Administered Dose 4 mg .ROUTE .STK-MED ONE Stop: 04/16/21 08:28 Oxytocin (Oxytocin 10 Units/1 Ml Sdv) Confirm Administered Dose 30 unit .ROUTE .STK-MED ONE Stop: 04/16/21 08:28 - Problem List & Annotations (1) delivery delivered SNOMED Code(s): 345976709 Code(s): O82 - ENCOUNTER FOR DELIVERY WITHOUT INDICATION Status: Acute Current Visit: Yes (2) Pre-eclampsia, severe, delivered SNOMED Code(s): 830481782, 931032379 Code(s): O14.14 - SEVERE PRE-ECLAMPSIA COMPLICATING CHILDBIRTH Status: Acute Current Visit: Yes - My Orders Last 24 Hours: My Active Orders 04/19/21 09:00 Labetalol [Normodyne] 400 mg PO BID - Plan Plan:: I have reviewed the above. Patient did have severe-range blood pressure o vernight, and overall blood pressures have increased. Will increase Labetalol to 400mg BID. Plan discharge home tomorrow and monitor blood pressure today.
[2021-04-19] MEDS: Docusate Sodium 100 MG Cap PO SCH ×2 (09:14→21:09)
[2021-04-19] MEDS: Labetalol 100 MG Tab PO SCH ×2 (09:15→21:09)
[2021-04-19] MEDS: Ibuprofen 800 MG Tab PO PRN (09:15)
[2021-04-19] MEDS: Acetaminophen/oxyCODONE 325-5 MG Tab PO PRN ×3 (09:16→21:19)
[2021-04-20] MEDS: Acetaminophen/oxyCODONE 325-5 MG Tab PO PRN ×2 (05:08→19:58)
[2021-04-20] MEDS: Docusate Sodium 100 MG Cap PO SCH ×2 (09:22→21:00)
[2021-04-20] MEDS: Labetalol 100 MG Tab PO SCH ×2 (09:23→21:01)
--- NOTE | 2021-04-20 10:22 | PCM.PNPP ---
- General Info Date of Service: 04/20/21 Functional Status: Reports: Pain Controlled, Tolerating Diet, Ambulating, Urinating - Review of Systems General: Denies: Fever, Weakness, Fatigue Pulmonary: Denies: Shortness of Breath Cardiovascular: Denies: Chest Pain, Palpitations, Lightheadedness Gastrointestinal: Denies: Abdominal Pain, Nausea, Vomiting Genitourinary: Denies: Flank Pain Musculoskeletal: Reports: No Symptoms Skin: Reports: No Symptoms Neurological: Denies: Headache, Paresthesia, Tingling, Tremors Psychiatric: Reports: No Symptoms - General Info Date of Service: 04/20/21 - Patient Data Vital Signs - Most Recent: Last Vital Signs Temp 35.9 C L 04/20/21 07:30 Pulse 89 04/20/21 09:23 Resp 16 04/20/21 07:30 BP 144/88 H 04/20/21 09:23 Pulse Ox 98 04/20/21 07:30 Weight - Most Recent: 99.337 kg Med Orders - Current: Current Medications Acetaminophen (Acetaminophen 500 Mg Tab) 1,000 mg PO Q4H PRN PRN Reason: Pain Last Admin: 04/16/21 05:30 Dose: 1,000 mg Documented by: Bisacodyl (Bisacodyl 10 Mg Supp) 10 mg RECTAL ONETIME PRN PRN Reason: Constipation Butorphanol Tartrate (Butorphanol 1 Mg/Ml Sdv) 1 mg IVPUSH Q1H PRN PRN Reason: Pain (severe 7-10) Calcium Gluconate (Calcium Gluconate 10% 1 Gm/10 Ml Sdv) 1 gm IV ASDIRECTED PRN PRN Reason: respiratory distress Calcium Gluconate (Calcium Gluconate 10% 1 Gm/10 Ml Sdv) 1 gm IV ASDIRECTED PRN PRN Reason: respiratory distress Carboprost Tromethamine (Carboprost Tromethamine 250 Mcg/1 Ml Amp) 250 mcg IM ASDIRECTED PRN PRN Reason: Post Hemorrhage Diphenhydramine HCl (Diphenhydramine 50 Mg/Ml Sdv) 25 mg IVPUSH Q6H PRN PRN Reason: Itching or Nausea Docusate Sodium (Docusate Sodium 100 Mg Cap) 100 mg PO BID NIRAV Last Admin: 04/20/21 09:22 Dose: 100 mg Documented by: Emollient Ointment (Lanolin 100% Cream 7 Gm Tube) 0 gm TOP ASDIRECTED PRN PRN Reason: Sore Nipples Last Admin: 04/16/21 21:34 Dose: 1 tube Documented by: Hydralazine HCl (Hydralazine 25 Mg Tab) 25 mg PO Q8H PRN PRN Reason: blood pressures >140/90 Oxytocin/Sodium Chloride (Oxytocin 30 Unit/500 Ml-Ns) 30 unit in 500 mls @ 999 mls/hr IV TITRATE NIRAV Tranexamic Acid 1,000 mg/ (Sodium Chloride) 110 mls @ 660 mls/hr IV ONETIME PRN PRN Reason: Bleeding Oxytocin/Sodium Chloride (Oxytocin 30 Unit/500 Ml-Ns) 30 unit in 500 mls @ 2 mls/hr IV TITRATE NIRAV; Protocol Lactated Ringer's (Ringers, Lactated) 1,000 mls @ 150 mls/hr IV ASDIRECTED NIRAV Last Admin: 04/16/21 00:53 Dose: 150 mls/hr Documented by: Magnesium Sulfate (Magnesium Sulfate In Water 20 Gm/500 Ml) 20 gm in 500 mls @ 50 mls/hr IV ASDIRECTED NIRAV Last Admin: 04/16/21 06:00 Dose: 2 gm/hr, 50 mls/hr Documented by: Sodium Chloride (Normal Saline) 1,000 mls @ 25 mls/hr IV ASDIRECTED NIRAV Last Infusion: 04/17/21 09:45 Dose: 25 mls/hr Documented by: Oxytocin/Sodium Chloride (Oxytocin 30 Unit/500 Ml-Ns) 30 unit in 500 mls @ 250 mls/hr IV TITRATE NIRAV Lactated Ringer's (Ringers, Lactated) 1,000 mls @ 125 mls/hr IV ASDIRECTED NIRAV Oxytocin/Lactated Ringer's (Pitocin In Lr 30 Units/500 Ml) 30 unit in 500 mls @ 999 mls/hr IV TITRATE NIRAV; Protocol Ibuprofen (Ibuprofen 800 Mg Tab) 800 mg PO Q8H PRN PRN Reason: Cramping Last Admin: 04/19/21 09:15 Dose: 800 mg Documented by: Labetalol HCl (Labetalol 100 Mg/20 Ml Mdv) 20 mg IVPUSH Q10M PRN; Protocol PRN Reason: Hypertension Last Admin: 04/16/21 06:49 Dose: 40 mg Documented by: Labetalol HCl (Labetalol 100 Mg Tab) 400 mg PO BID NIRAV Last Admin: 04/20/21 09:23 Dose: 400 mg Documented by: Lidocaine HCl (Lidocaine 1% 50 Ml Mdv) 50 ml INJECT ONETIME PRN PRN Reason: Laceration repair Methylergonovine Maleate (Methylergonovine 0.2 Mg/1 Ml Amp) 0.2 mg IM ASDIRECTED PRN PRN Reason: Post Hemorrhage Misoprostol (Misoprostol 200 Mcg Tab) 200 mcg PO ONETIME PRN PRN Reason: Post Hemorrhage Misoprostol (Misoprostol 25 Mcg (1/4 Of 100 Mcg) Tab) 25 mcg VAG ONETIME PRN PRN Reason: Cervical Ripening Misoprostol (Misoprostol 25 Mcg (1/4 Of 100 Mcg) Tab) 25 mcg VAG Q4H PRN PRN Reason: Cervical Ripening Last Admin: 04/16/21 01:01 Dose: 25 mcg Documented by: Nalbuphine HCl (Nalbuphine 10 Mg/1 Ml Vial) 10 mg IVPUSH Q1H PRN PRN Reason: Pain (severe 7-10) Ondansetron HCl (Ondansetron 4 Mg/2 Ml Sdv) 4 mg IVPUSH Q4H PRN PRN Reason: Nausea Ondansetron HCl (Ondansetron 4 Mg/2 Ml Sdv) 4 mg IVPUSH Q4H PRN PRN Reason: Nausea/Vomiting Oxycodone/Acetaminophen (Acetaminophen/Oxycodone 325-5 Mg Tab) 1 tab PO Q4H PRN PRN Reason: Pain (severe 7-10) Last Admin: 04/20/21 05:08 Dose: 1 tab Documented by: Oxycodone/Acetaminophen (Acetaminophen/Oxycodone 325-5 Mg Tab) 2 tab PO Q4H PRN PRN Reason: Pain (severe 7-10) Sodium Chloride (Sodium Chloride 0.9% 10 Ml Syringe) 10 ml FLUSH ASDIRECTED PRN PRN Reason: Keep Vein Open Sodium Chloride (Sodium Chloride 0.9% 2.5 Ml Syringe) 2.5 ml FLUSH ASDIRECTED PRN PRN Reason: Keep Vein Open Sodium Chloride (Sodium Chloride 0.9% 10 Ml Sdv) 10 ml IV ASDIRECTED PRN PRN Reason: IV Use Sterile Water (Water For Irrigation,Sterile 1,000 Ml Container) 1,000 ml IRR ASDIRECTED PRN PRN Reason: delivery Terbutaline Sulfate (Terbutaline 1 Mg/Ml Sdv) 0.25 mg SUBCUT ASDIRECTED PRN PRN Reason: Tacysystole Discontinued Medications Bupivacaine HCl (Bupivacaine 0.5% 10 Ml Sdv) Confirm Administered Dose 20 ml .ROUTE .STK-MED ONE Stop: 04/16/21 08:29 Cefazolin Sodium (Cefazolin 1 Gm Vial) Confirm Administered Dose 2 gm .ROUTE .STK-MED ONE Stop: 04/16/21 09:01 Citric Acid/Sodium Citrate (Citric Acid/Sodium Citrate Solution 30 Ml Cup) 30 ml PO ONETIME ONE Stop: 04/16/21 08:28 Last Admin: 04/17/21 13:13 Dose: Not Given Documented by: Fentanyl (Fentanyl 100 Mcg/2 Ml Sdv) Confirm Administered Dose 100 mcg .ROUTE .STK-MED ONE Stop: 04/16/21 08:28 Magnesium Sulfate 4 gm/ Premix 100 mls @ 300 mls/hr IV BOLUS ONE Stop: 04/16/21 05:15 Last Admin: 04/16/21 05:44 Dose: 300 mls/hr Documented by: Ropivacaine (Naropin 0.2%) Confirm Administered Dose 200 mls @ as directed .ROUTE .STK-MED ONE Stop: 04/16/21 07:45 Last Admin: 04/17/21 09:24 Dose: Not Given Documented by: Cefazolin Sodium/Dextrose 2 gm (/ Premix) 50 mls @ 100 mls/hr IV ONETIME ONE Stop: 04/16/21 08:56 Last Admin: 04/17/21 13:14 Dose: Not Given Documented by: Magnesium Sulfate (Magnesium Sulfate In Water 20 Gm/500 Ml) 20 gm in 500 mls @ 50 mls/hr IV ASDIRECTED NIRAV Stop: 04/17/21 10:01 Last Admin: 04/17/21 02:12 Dose: 2 gm/hr, 50 mls/hr Documented by: Ketorolac Tromethamine (Ketorolac 30 Mg/Ml Sdv) Confirm Administered Dose 30 mg .ROUTE .STK-MED ONE Stop: 04/16/21 08:28 Ketorolac Tromethamine (Ketorolac 30 Mg/Ml Sdv) 30 mg IVPUSH Q6H NIRAV Stop: 04/17/21 08:31 Last Admin: 04/17/21 08:28 Dose: 30 mg Documented by: Labetalol HCl (Labetalol 100 Mg Tab) 200 mg PO BID [facility] Last Admin: 04/18/21 20:34 Dose: 200 mg Documented by: Lidocaine (Lidocaine 2% 5 Ml Sdv) Confirm Administered Dose 5 ml .ROUTE .STK-MED ONE Stop: 04/16/21 08:29 Lidocaine (Lidocaine 2% 5 Ml Sdv) Confirm Administered Dose 5 ml .ROUTE .STK-MED ONE Stop: 04/16/21 09:38 Measles/Mumps/Rubella Vaccine Live (Measles, Mumps & Rubella Vaccine 0.5 Ml Sdv) 0.5 ml SUBCUT .ONCE ONE Stop: 04/16/21 09:52 Miscellaneous Medication (Phenylephrine Hcl In 0.9% Nacl 1 Mg/10 Ml Syringe) Confirm Administered Dose 1 mg .ROUTE .STK-MED ONE Stop: 04/16/21 08:28 Morphine Sulfate (Morphine Pf 10 Mg/10 Ml Sdv) Confirm Administered Dose 10 mg .ROUTE .STK-MED ONE Stop: 04/16/21 09:34 Ondansetron HCl (Ondansetron 4 Mg/2 Ml Sdv) Confirm Administered Dose 4 mg .ROUTE .STK-MED ONE Stop: 04/16/21 08:28 Oxytocin (Oxytocin 10 Units/1 Ml Sdv) Confirm Administered Dose 30 unit .ROUTE .STK-MED ONE Stop: 04/16/21 08:28 - Infant Interaction Disposition, : to Nursery Infant Feeding: Bottle Fed Infant Other Infant Feeding: Formula while in nursery. Attemping when able Support Person: - Recovery Exam Fundal Tone: Firm Fundal Level: 2 Fingerbreadths Below Umbilicus Fundal Placement: Midline Lochia Amount: Scant Lochia Color: Rubra/Red Perineum Description: Intact, Minimal Bruising/Swelling Episiotomy/Laceration: None Bladder Status: Voiding Urinary Elimination: Voided - Exam General: Alert, Oriented Lungs: Normal Respiratory Effort Cardiovascular: Regular Rate, Regular Rhythm GI/Abdominal Exam: Normal Bowel Sounds, Soft, Non-Tender Extremities: Pedal Edema (trace). No: Hill's Sign Skin: Warm, Dry, Intact Wound/Incisions: Healing Well Neurological: No New Focal Deficit Psy/Mental Status: Alert, Normal Affect, Normal Mood - Problem List & Annotations (1) delivery delivered SNOMED Code(s): 227129997 Code(s): O82 - ENCOUNTER FOR DELIVERY WITHOUT INDICATION Status: Acute Current Visit: Yes (2) Pre-eclampsia, severe, delivered SNOMED Code(s): 830000249, 625496853 Code(s): O14.14 - SEVERE PRE-ECLAMPSIA COMPLICATING CHILDBIRTH Status: Acute Current Visit: Yes - Problem List Review Problem List Initiated/Reviewed/Updated: Yes - My Orders Last 24 Hours: My Active Orders 04/20/21 10:16 hydrALAZINE [Apresoline] 25 mg PO Q8H PRN - Assessment Assessment:: 25-year-old s/p 1LTCS at 37w3d for persistent category 2 FHTs, POD#3. - Plan Plan:: Blood pressures remain in 140s/80-90s. Patient is asymptomatic. However, these are consistent blood pressure. Will add hydralazine prn for BPs >140/90. Will monitor with this regimen. Patient agrees to plan of care, otherwise continue cares.
[2021-04-20] MEDS: hydrALAZINE 10 MG Tab PO PRN ×2 (10:48→19:44)
[2021-04-21] MEDS: hydrALAZINE 10 MG Tab PO PRN (05:18)
[2021-04-21] MEDS: Labetalol 100 MG Tab PO SCH (08:53)
[2021-04-21] MEDS: Docusate Sodium 100 MG Cap PO SCH (08:53)
--- NOTE | 2021-04-21 11:39 | PCM.PNPP ---
- General Info Date of Service: 04/21/21 Functional Status: Reports: Pain Controlled, Tolerating Diet, Ambulating, Urinating - Review of Systems General: Denies: Fever, Weakness, Fatigue Pulmonary: Denies: Shortness of Breath Cardiovascular: Denies: Chest Pain, Palpitations, Lightheadedness Gastrointestinal: Denies: Abdominal Pain, Nausea, Vomiting Genitourinary: Denies: Flank Pain Musculoskeletal: Reports: No Symptoms Skin: Reports: No Symptoms Neurological: Reports: No Symptoms Psychiatric: Reports: No Symptoms - General Info Date of Service: 04/21/21 - Patient Data Vital Signs - Most Recent: Last Vital Signs Temp 36.6 C 04/21/21 07:00 Pulse 78 04/21/21 08:53 Resp 16 04/21/21 07:00 BP 142/84 H 04/21/21 08:53 Pulse Ox 97 04/21/21 07:00 Weight - Most Recent: 99.337 kg Med Orders - Current: Current Medications Acetaminophen (Acetaminophen 500 Mg Tab) 1,000 mg PO Q4H PRN PRN Reason: Pain Last Admin: 04/16/21 05:30 Dose: 1,000 mg Documented by: Bisacodyl (Bisacodyl 10 Mg Supp) 10 mg RECTAL ONETIME PRN PRN Reason: Constipation Butorphanol Tartrate (Butorphanol 1 Mg/Ml Sdv) 1 mg IVPUSH Q1H PRN PRN Reason: Pain (severe 7-10) Calcium Gluconate (Calcium Gluconate 10% 1 Gm/10 Ml Sdv) 1 gm IV ASDIRECTED PRN PRN Reason: respiratory distress Calcium Gluconate (Calcium Gluconate 10% 1 Gm/10 Ml Sdv) 1 gm IV ASDIRECTED PRN PRN Reason: respiratory distress Carboprost Tromethamine (Carboprost Tromethamine 250 Mcg/1 Ml Amp) 250 mcg IM ASDIRECTED PRN PRN Reason: Post Hemorrhage Diphenhydramine HCl (Diphenhydramine 50 Mg/Ml Sdv) 25 mg IVPUSH Q6H PRN PRN Reason: Itching or Nausea Docusate Sodium (Docusate Sodium 100 Mg Cap) 100 mg PO BID NIRAV Last Admin: 04/21/21 08:53 Dose: 100 mg Documented by: Emollient Ointment (Lanolin 100% Cream 7 Gm Tube) 0 gm TOP ASDIRECTED PRN PRN Reason: Sore Nipples Last Admin: 04/16/21 21:34 Dose: 1 tube Documented by: Hydralazine HCl (Hydralazine 10 Mg Tab) 25 mg PO Q8H PRN PRN Reason: blood pressures >140/90 Last Admin: 04/21/21 05:18 Dose: 25 mg Documented by: Oxytocin/Sodium Chloride (Oxytocin 30 Unit/500 Ml-Ns) 30 unit in 500 mls @ 999 mls/hr IV TITRATE NIRAV Tranexamic Acid 1,000 mg/ (Sodium Chloride) 110 mls @ 660 mls/hr IV ONETIME PRN PRN Reason: Bleeding Oxytocin/Sodium Chloride (Oxytocin 30 Unit/500 Ml-Ns) 30 unit in 500 mls @ 2 mls/hr IV TITRATE NIRAV; Protocol Lactated Ringer's (Ringers, Lactated) 1,000 mls @ 150 mls/hr IV ASDIRECTED NIRAV Last Admin: 04/16/21 00:53 Dose: 150 mls/hr Documented by: Magnesium Sulfate (Magnesium Sulfate In Water 20 Gm/500 Ml) 20 gm in 500 mls @ 50 mls/hr IV ASDIRECTED NIRAV Last Admin: 04/16/21 06:00 Dose: 2 gm/hr, 50 mls/hr Documented by: Sodium Chloride (Normal Saline) 1,000 mls @ 25 mls/hr IV ASDIRECTED NIRAV Last Infusion: 04/17/21 09:45 Dose: 25 mls/hr Documented by: Oxytocin/Sodium Chloride (Oxytocin 30 Unit/500 Ml-Ns) 30 unit in 500 mls @ 250 mls/hr IV TITRATE NIRAV Lactated Ringer's (Ringers, Lactated) 1,000 mls @ 125 mls/hr IV ASDIRECTED NIRAV Oxytocin/Lactated Ringer's (Pitocin In Lr 30 Units/500 Ml) 30 unit in 500 mls @ 999 mls/hr IV TITRATE NIRAV; Protocol Ibuprofen (Ibuprofen 800 Mg Tab) 800 mg PO Q8H PRN PRN Reason: Cramping Last Admin: 04/19/21 09:15 Dose: 800 mg Documented by: Labetalol HCl (Labetalol 100 Mg/20 Ml Mdv) 20 mg IVPUSH Q10M PRN; Protocol PRN Reason: Hypertension Last Admin: 04/16/21 06:49 Dose: 40 mg Documented by: Labetalol HCl (Labetalol 100 Mg Tab) 400 mg PO BID NIRAV Last Admin: 04/21/21 08:53 Dose: 400 mg Documented by: Lidocaine HCl (Lidocaine 1% 50 Ml Mdv) 50 ml INJECT ONETIME PRN PRN Reason: Laceration repair Methylergonovine Maleate (Methylergonovine 0.2 Mg/1 Ml Amp) 0.2 mg IM ASDIRECTED PRN PRN Reason: Post Hemorrhage Misoprostol (Misoprostol 200 Mcg Tab) 200 mcg PO ONETIME PRN PRN Reason: Post Hemorrhage Misoprostol (Misoprostol 25 Mcg (1/4 Of 100 Mcg) Tab) 25 mcg VAG ONETIME PRN PRN Reason: Cervical Ripening Misoprostol (Misoprostol 25 Mcg (1/4 Of 100 Mcg) Tab) 25 mcg VAG Q4H PRN PRN Reason: Cervical Ripening Last Admin: 04/16/21 01:01 Dose: 25 mcg Documented by: Nalbuphine HCl (Nalbuphine 10 Mg/1 Ml Vial) 10 mg IVPUSH Q1H PRN PRN Reason: Pain (severe 7-10) Ondansetron HCl (Ondansetron 4 Mg/2 Ml Sdv) 4 mg IVPUSH Q4H PRN PRN Reason: Nausea Ondansetron HCl (Ondansetron 4 Mg/2 Ml Sdv) 4 mg IVPUSH Q4H PRN PRN Reason: Nausea/Vomiting Oxycodone/Acetaminophen (Acetaminophen/Oxycodone 325-5 Mg Tab) 1 tab PO Q4H PRN PRN Reason: Pain (severe 7-10) Last Admin: 04/20/21 19:58 Dose: 1 tab Documented by: Oxycodone/Acetaminophen (Acetaminophen/Oxycodone 325-5 Mg Tab) 2 tab PO Q4H PRN PRN Reason: Pain (severe 7-10) Last Admin: 04/20/21 10:51 Dose: 2 tab Documented by: Sodium Chloride (Sodium Chloride 0.9% 10 Ml Syringe) 10 ml FLUSH ASDIRECTED PRN PRN Reason: Keep Vein Open Sodium Chloride (Sodium Chloride 0.9% 2.5 Ml Syringe) 2.5 ml FLUSH ASDIRECTED PRN PRN Reason: Keep Vein Open Sodium Chloride (Sodium Chloride 0.9% 10 Ml Sdv) 10 ml IV ASDIRECTED PRN PRN Reason: IV Use Sterile Water (Water For Irrigation,Sterile 1,000 Ml Container) 1,000 ml IRR ASDIRECTED PRN PRN Reason: delivery Terbutaline Sulfate (Terbutaline 1 Mg/Ml Sdv) 0.25 mg SUBCUT ASDIRECTED PRN PRN Reason: Tacysystole Discontinued Medications Bupivacaine HCl (Bupivacaine 0.5% 10 Ml Sdv) Confirm Administered Dose 20 ml .ROUTE .STK-MED ONE Stop: 04/16/21 08:29 Cefazolin Sodium (Cefazolin 1 Gm Vial) Confirm Administered Dose 2 gm .ROUTE .STK-MED ONE Stop: 04/16/21 09:01 Citric Acid/Sodium Citrate (Citric Acid/Sodium Citrate Solution 30 Ml Cup) 30 ml PO ONETIME ONE Stop: 04/16/21 08:28 Last Admin: 04/17/21 13:13 Dose: Not Given Documented by: Fentanyl (Fentanyl 100 Mcg/2 Ml Sdv) Confirm Administered Dose 100 mcg .ROUTE .STK-MED ONE Stop: 04/16/21 08:28 Magnesium Sulfate 4 gm/ Premix 100 mls @ 300 mls/hr IV BOLUS ONE Stop: 04/16/21 05:15 Last Admin: 04/16/21 05:44 Dose: 300 mls/hr Documented by: Ropivacaine (Naropin 0.2%) Confirm Administered Dose 200 mls @ as directed .ROUTE .STK-MED ONE Stop: 04/16/21 07:45 Last Admin: 04/17/21 09:24 Dose: Not Given Documented by: Cefazolin Sodium/Dextrose 2 gm (/ Premix) 50 mls @ 100 mls/hr IV ONETIME ONE Stop: 04/16/21 08:56 Last Admin: 04/17/21 13:14 Dose: Not Given Documented by: Magnesium Sulfate (Magnesium Sulfate In Water 20 Gm/500 Ml) 20 gm in 500 mls @ 50 mls/hr IV ASDIRECTED NIRAV Stop: 04/17/21 10:01 Last Admin: 04/17/21 02:12 Dose: 2 gm/hr, 50 mls/hr Documented by: Ketorolac Tromethamine (Ketorolac 30 Mg/Ml Sdv) Confirm Administered Dose 30 mg .ROUTE .STK-MED ONE Stop: 04/16/21 08:28 Ketorolac Tromethamine (Ketorolac 30 Mg/Ml Sdv) 30 mg IVPUSH Q6H NIRAV Stop: 04/17/21 08:31 Last Admin: 04/17/21 08:28 Dose: 30 mg Documented by: Labetalol HCl (Labetalol 100 Mg Tab) 200 mg PO BID [facility] Last Admin: 04/18/21 20:34 Dose: 200 mg Documented by: Lidocaine (Lidocaine 2% 5 Ml Sdv) Confirm Administered Dose 5 ml .ROUTE .STK-MED ONE Stop: 04/16/21 08:29 Lidocaine (Lidocaine 2% 5 Ml Sdv) Confirm Administered Dose 5 ml .ROUTE .STK-MED ONE Stop: 04/16/21 09:38 Measles/Mumps/Rubella Vaccine Live (Measles, Mumps & Rubella Vaccine 0.5 Ml Sdv) 0.5 ml SUBCUT .ONCE ONE Stop: 04/16/21 09:52 Miscellaneous Medication (Phenylephrine Hcl In 0.9% Nacl 1 Mg/10 Ml Syringe) Confirm Administered Dose 1 mg .ROUTE .STK-MED ONE Stop: 04/16/21 08:28 Morphine Sulfate (Morphine Pf 10 Mg/10 Ml Sdv) Confirm Administered Dose 10 mg .ROUTE .STK-MED ONE Stop: 04/16/21 09:34 Ondansetron HCl (Ondansetron 4 Mg/2 Ml Sdv) Confirm Administered Dose 4 mg .ROUTE .STK-MED ONE Stop: 04/16/21 08:28 Oxytocin (Oxytocin 10 Units/1 Ml Sdv) Confirm Administered Dose 30 unit .ROUTE .STK-MED ONE Stop: 04/16/21 08:28 - Infant Interaction Infant Disposition, : [place] to Nursery Feeding: Bottle Fed Infant Other Feeding: Formula while in nursery. Attemping when able Support Person: - Recovery Exam Fundal Tone: Firm Fundal Level: 2 Fingerbreadths Below Umbilicus Fundal Placement: Midline Lochia Amount: Scant Lochia Color: Rubra/Red Perineum Description: Intact, Minimal Bruising/Swelling Episiotomy/Laceration: None Bladder Status: Voiding Urinary Elimination: Voided - Exam General: Alert, Oriented Lungs: Normal Respiratory Effort Cardiovascular: Regular Rate, Regular Rhythm GI/Abdominal Exam: Normal Bowel Sounds, Soft Extremities: Pedal Edema (trace). No: Hill's Sign Skin: Warm, Dry, Intact Wound/Incisions: Healing Well. No: Drainage, Erythema Neurological: No New Focal Deficit Psy/Mental Status: Alert, Normal Affect, Normal Mood - Problem List & Annotations (1) delivery delivered SNOMED Code(s): 459318692 Code(s): O82 - ENCOUNTER FOR DELIVERY WITHOUT INDICATION Status: Acute Current Visit: Yes (2) Pre-eclampsia, severe, delivered SNOMED Code(s): 514822149, 930515290 Code(s): O14.14 - SEVERE PRE-ECLAMPSIA COMPLICATING CHILDBIRTH Status: Acute Current Visit: Yes - Problem List Review Problem List Initiated/Reviewed/Updated: Yes - My Orders Last 24 Hours: My Active Orders 04/21/21 11:14 Ready for Discharge [RC] PER UNIT ROUTINE - Assessment Assessment:: 25-year-old s/p 1LTCS at 37w3d for persistent category 2 FHTs, POD#4. - Plan Plan:: With the addition of hydralazine as needed, BPs normalized to 120/70s. Will send in rx for this to use and patient will monitor BP at [facility]. She is going to follow up at [facility] tomorrow [facility] BP check. She is to call if BPs >140/90s despite labetalol and hydralazine. She denies any headaches or visual changes. Dischargge to home today. Discharge instructions reviewed.
== END 2021-04-21 12:25 | disposition home or self-care (01) | DRG 540 ==
LOC: MW.OB 22:48 → MW.OBCHECK 22:48 → MW.OB 04-16 00:20 → MW.OBCHECK 04-16 00:20 → OBSVTOIN 04-16 09:09 → MW.OB 04-16 11:23
PROVIDERS: ADMIT Obstetrics & Gynecology; ATTEND Obstetrics & Gynecology
PROC: 10D00Z1 Extraction of Products of Conception, Low, Open Approach (ICD-10-PCS; principal; 2021-04-16)
PROC: 3E0P7VZ Introduction of Hormone into Female Reproductive, Via Natural or Artificial Opening (ICD-10-PCS; 2021-04-16)
DX: O14.14 Severe pre-eclampsia complicating childbirth (principal); Z3A.37 37 weeks gestation of pregnancy; Z37.0 Single live birth
CPT/HCPCS: 01967; 01968; 36415; 51702; 59025; 80053; 81001; 82803; 83615; 83735; 84550; 85027; 86592; 86850; 86900; 86901; 88307; A9270-GY; J0690; J1885; J2270; J2370; J2405; J2590; J2795; J3010; J3475; J3490; J7030; J7120

== ENCOUNTER 2022-07-15 05:18 | Inpatient (IN) | payer BC ==
[~2022-07-15 05:18] MED LIST: Acetaminophen/oxyCODONE 325-5 MG Tab PO PRN; Albuterol 0.083% 2.5 MG/3 ML Neb Soln NEB PRN; HYDROmorphone 1 MG/ML Syringe IVPUSH PRN; Metoclopramide 10 MG/2 ML SDV IVPUSH PRN; Morphine 2 MG/ML SYRINGE IVPUSH PRN; Naloxone 0.4 MG/ML SDV IVPUSH PRN; Ondansetron 4 MG/2 ML SDV IVPUSH PRN; Phenylephrine HCl In 0.9% NaCl 1 MG/10 ML Vial IVPUSH SCH; diphenhydrAMINE 50 MG/ML SDV IVPUSH PRN; ePHEDrine 50 MG/ML SDV IVPUSH PRN; fentaNYL 100 MCG/2 ML SDV IVPUSH PRN; fentaNYL 50 MCG/ML SDV IVPUSH PRN
[2022-07-15] MEDS: Lactated Ringers 1,000 ML IV SCH ×2 (05:30→07:00)
[2022-07-15] MEDS ORDERED: ceFAZolin 2 GM in Premix Bag 1 BAG IV ONE (06:26)
[2022-07-15] MEDS ORDERED: Sodium Chloride 0.9% 2.5 ML Syringe FLUSH PRN (06:26)
[2022-07-15] MEDS ORDERED: Citric Acid/Sodium Citrate Solution 30 ML Cup PO ONE (06:26)
[2022-07-15] MEDS ORDERED: Sodium Chloride 0.9% 20 ML SDV IV PRN (06:26)
[2022-07-15] MEDS ORDERED: Sodium Chloride 0.9% 10 ML Syringe FLUSH PRN (06:26)
[2022-07-15] MEDS ORDERED: Oxytocin/0.9 % Sodium Chloride 30 UNIT/500 ML BAG IV SCH ×2 (06:30→10:30)
[2022-07-15] MEDS ORDERED: Water For Injection, Sterile 20 ML ONE (07:34)
[2022-07-15] MEDS ORDERED: Phenylephrine 1% 10 MG/ML SDV ONE (07:34)
[2022-07-15] MEDS ORDERED: Ketorolac 30 MG/ML SDV ONE (07:34)
[2022-07-15] MEDS ORDERED: Dexamethasone 4 MG/ML 5 ML MDV ONE (07:34)
[2022-07-15] MEDS ORDERED: ceFAZolin 1 GM Vial ONE (07:34)
[2022-07-15] MEDS ORDERED: Dexmedetomidine 200 MCG/2 ML SDV ONE (07:34)
[2022-07-15] MEDS ORDERED: Ondansetron 4 MG/2 ML SDV ONE (07:34)
[2022-07-15] MEDS ORDERED: Lidocaine 2% 5 ML SDV ONE (07:34)
[2022-07-15] MEDS ORDERED: Oxytocin 10 Units/1 ML SDV ONE (07:35)
[2022-07-15] MEDS ORDERED: fentaNYL 100 MCG/2 ML SDV ONE (07:41)
[2022-07-15] MEDS ORDERED: Morphine PF 10 MG/10 ML SDV ONE (07:41)
[2022-07-15] MEDS ORDERED: Ropivacaine 0.5% 5 MG/ML 30 ML SDV ONE (07:45)
[2022-07-15] MEDS ORDERED: Bisacodyl 10 MG Supp RECTAL PRN (10:29)
[2022-07-15] MEDS ORDERED: Acetaminophen/oxyCODONE 325-5 MG Tab PO PRN (10:29)
[2022-07-15] MEDS ORDERED: diphenhydrAMINE 50 MG/ML SDV IVPUSH PRN (10:29)
[2022-07-15] MEDS ORDERED: Oxytocin 10 Units/1 ML SDV IM PRN (10:29)
[2022-07-15] MEDS ORDERED: Lanolin 100% Cream 7 GM Tube TOP PRN (10:29)
[2022-07-15] MEDS ORDERED: Ondansetron 4 MG/2 ML SDV IVPUSH PRN (10:29)
[2022-07-15] MEDS ORDERED: Methylergonovine 0.2 MG/1 ML Amp IM PRN (10:29)
[2022-07-15] MEDS ORDERED: Ibuprofen 800 MG Tab PO PRN (10:29)
[2022-07-15] MEDS ORDERED: Tranexamic Acid 1,000 MG in Sodium Chloride 0.9% 100 ML IV PRN (10:29)
[2022-07-15] MEDS ORDERED: Misoprostol 200 MCG Tab RECTAL PRN (10:29)
[2022-07-15] MEDS ORDERED: Lactated Ringers 1,000 ML IV SCH (10:30)
[2022-07-15] MEDS ORDERED: Acetaminophen 1,000 MG in Premix Bag 1 BAG IV ONE (16:00)
[2022-07-15] MEDS: Ketorolac 30 MG/ML SDV IVPUSH SCH ×2 (16:45→23:31)
[2022-07-15] MEDS: Docusate Sodium 100 MG Cap PO SCH (23:33)
[2022-07-16] MEDS: Ketorolac 30 MG/ML SDV IVPUSH SCH ×2 (05:44→11:33)
[2022-07-16] MEDS: Prenatal Multivitamin with Calcium/Folic Acid/Iron Tab PO SCH (09:11)
[2022-07-16] MEDS: Docusate Sodium 100 MG Cap PO SCH ×2 (09:11→21:03)
[2022-07-16] MEDS: Acetaminophen/oxyCODONE 325-5 MG Tab PO PRN (16:45)
[2022-07-17] MEDS: Acetaminophen/oxyCODONE 325-5 MG Tab PO PRN ×2 (01:49→08:07)
[2022-07-17] MEDS: Prenatal Multivitamin with Calcium/Folic Acid/Iron Tab PO SCH (08:08)
[2022-07-17] MEDS: Docusate Sodium 100 MG Cap PO SCH (08:32)
== END 2022-07-17 11:00 | disposition home or self-care (01) | DRG 540 ==
LOC: MW.OB 05:18
PROVIDERS: ADMIT Obstetrics & Gynecology; ATTEND Obstetrics & Gynecology
PROC: 10D00Z1 Extraction of Products of Conception, Low, Open Approach (ICD-10-PCS; principal; 2022-07-15)
DX: O34.211 Maternal care for low transverse scar from previous cesarean delivery (principal); Z20.822 Contact with and (suspected) exposure to COVID-19; O13.4 Gestational [pregnancy-induced] hypertension without significant proteinuria, complicating childbirth; Z37.0 Single live birth; Z3A.39 39 weeks gestation of pregnancy; Z88.0 Allergy status to penicillin
CPT/HCPCS: 36415; 59025; 82803; 85014; 85018; 85027; 86592; 86850; 86900; 86901; A9270-GY; J0131; J0690; J1100; J1790; J1885; J2274; J2370; J2405; J2590; J2795; J3010; J7120; U0002

== ENCOUNTER 2024-06-13 11:17 | Emergency (ER) | payer BC ==
[2024-06-13] MEDS: Sodium Chloride 0.9% 1,000 ML IV ONE (11:49)
[2024-06-13] MEDS: Ondansetron 4 MG/2 ML SDV IVPUSH ONE (11:50)
[2024-06-13 12:02] LABS: BASOPHILS ABSOLUTE AUTO 0.02 K/uL (0.00-0.20); BASOPHILS PERCENT AUTO 0.2 % (0.0-1.0); EOSINOPHILS ABSOLUTE AUTO 0.02 K/uL (0.00-0.45); EOSINOPHILS PERCENT AUTO 0.2 % (0.0-6.0); HEMATOCRIT 35.4 % (37.0-47.0); IMMATURE GRAN ABSOLUTE AUTO 0.04 K/uL (0.00-0.05); IMMATURE GRAN PERCENT AUTO 0.4 % (0.0-0.4); LYMPHOCYTES ABSOLUTE AUTO 0.34 K/uL (1.00-4.80); LYMPHOCYTES PERCENT AUTO 3.2 % (24.0-44.0); MEAN CORPUSCULAR HGB CONC 33.9 g/dL (32.0-36.0); MEAN CORPUSCULAR VOLUME 91.5 fL (83.0-99.0); MONOCYTES ABSOLUTE AUTO 0.32 K/uL (0.00-0.80); NEUTROPHILS ABSOLUTE AUTO 9.86 K/uL (1.80-7.70); PLATELET COUNT,PLT 209 K/uL (150-400); RED BLOOD CELL COUNT 3.87 M/uL (4.10-5.30)
[2024-06-13 12:13] LABS: APPEARANCE,URINE CLEAR; BILIRUBIN,URINE NEGATIVE (NEGATIVE); COLOR,URINE YELLOW; GLUCOSE,URINE NEGATIVE (NEGATIVE); KETONES,URINE >=80 mg/dL (NEGATIVE); LEUKOCYTE ESTERASE,URINE NEGATIVE (NEGATIVE); NITRITE,URINE NEGATIVE (NEGATIVE); OCCULT BLOOD,URINE NEGATIVE (NEGATIVE); PH,URINE 6.5 (5.0-8.0); PROTEIN,URINE NEGATIVE (NEGATIVE)
[2024-06-13 12:16] LABS: A/G RATIO 0.7 (0.9-1.6); BILIRUBIN TOTAL 1.4 mg/dL (0.2-1.0); CALCIUM 8.7 mg/dL (8.5-10.1); CARBON DIOXIDE,CO2 21.9 mmol/L (21.0-32.0); CREATININE 0.6 mg/dL (0.6-1.0); EST CRCL DRUG DOSING (CG) 140.82 mL/min; POTASSIUM,K 3.8 mmol/L (3.5-5.1); PROTEIN TOTAL,TP 7.2 g/dL (6.4-8.2)
== END 2024-06-13 13:26 | disposition home or self-care (01) ==
LOC: MW.ED 11:17
DX: O21.0 Mild hyperemesis gravidarum (principal); Z3A.16 16 weeks gestation of pregnancy; Z88.0 Allergy status to penicillin; Z75.8 Other problems related to medical facilities and other health care
CPT/HCPCS: 36415; 80053; 81003; 85025; 96361; 96374; 99284; J2405; J7030